=== PATIENT | female | born 1975 | race Caucasian/White ===

== ENCOUNTER 2023-03-02 12:59 | Inpatient (IN) | payer MEDICAID ==
[~2023-03-02] VITALS: Ht 154.9 cm; Wt 70.8 kg
[2023-03-02 13:25] VITALS: BP 102/66
--- NOTE | 2023-03-02 14:30 | NUR ---
PT. BED 1 VIA WC WITH AT BEDSIDE
--- NOTE | 2023-03-02 14:49 | NUR ---
Note regina in ED - 03/02/23 at 1450 by [email or web address] PT. NOT FOUND IN LOBBY. CALLED PT.S NAME OUTSIDE ER. CHECKED BATHROOMS. PT. NOT FOUND. PT. LEFT WITHOUT BEING SEEN. NOTIFIED.
[2023-03-02] MEDS ORDERED: NACL 0.9% 2,000 ML IV ONE (14:50)
[2023-03-02] MEDS ORDERED: MORPHINE SULFATE 4 MG/ML SYR IVP ONE (14:55)
[2023-03-02] MEDS ORDERED: cefTRIAXone 1,000 MG VIAL ONE (15:05)
[2023-03-02] MEDS ORDERED: DEXTROSE 50% 50 ML SYR IVP ONE ×5 (15:11→19:15)
[2023-03-02 15:18] LABS: BASOPHILS % (AUTO) 0.4 % (0.0-2.0); EOSINOPHILS % (AUTO) 0.3 % (0.0-4.0); HEMATOCRIT 29.8 % (36-48); HEMOGLOBIN 9.1 g/dL (12.0-16.0); LYMPHOCYTES # (AUTO) 0.2 K/uL (2.5-16.5); LYMPHOCYTES % (AUTO) 4.9 % (20.5-51.1); MEAN CORPUSCULAR HEMOGLOBIN 22 pg (27-31); MEAN CORPUSCULAR HGB CONC 31 g/dL (33-37); MEAN CORPUSCULAR VOLUME 72.7 fL (80-94); MONOCYTES # (AUTO) 0.3 K/uL (0.8-1.0); MONOCYTES % (AUTO) 6.8 % (1.7-9.3); NEUTROPHILS # (AUTO) 3.5 K/uL (1.8-7.7); NEUTROPHILS % (AUTO) 87.6 % (42.2-75.2); PLATELET COUNT (AUTO) 90 K/uL (140-450); RED CELL DISTRIBUTION WIDTH 22.2 % (11.6-13.7)
[2023-03-02 15:26] LABS: APPEARANCE,URINE CLEAR (CLEAR); BILIRUBIN,URINE 1+ (NEGATIVE); BLOOD, URINE NEGATIVE (NEGATIVE); COLOR,URINE YELLOW (YELLOW); LEUKOCYTE ESTERASE ,URINE NEGATIVE (NEGATIVE); NITRITE, URINE NEGATIVE (NEGATIVE); UGLUCOSE NEGATIVE (NEGATIVE)
[2023-03-02 15:36] LABS: ALBUMIN 2.7 g/dL (3.4-5.0); ANION GAP 37.1 (8-16); POTASSIUM 3.8 mmol/L (3.5-5.1); TOTAL BILIRUBIN 3.2 mg/dL (0.0-1.0)
[2023-03-02 15:40] LABS: CARBON DIOXIDE 5.7 mmol/L (21-32); CREATININE 4.8 mg/dL (0.6-1.3)
--- NOTE | 2023-03-02 15:40 | NUR ---
MD ULLOA NOTIFIED OF MULTIPLE CRITICAL LABS 1540 CO2 5.7 GLUCOSE 37 BUN 65 CREATININE 4.8 LACTIC ACID 5.1 1550 ACETAMINOPHEN 49.6
[2023-03-02 15:43] LABS: BARBITURATE, URINE NEGATIVE ng/ml (NEG <=200); BENZODIAZEPINE, URINE NEGATIVE ng/mL (NEG <=200); CANNABINOID, URINE NEGATIVE ng/mL (NEG <=50); COCAINE, URINE NEGATIVE ng/mL (NEG <=300); OPIATE, URINE POSITIVE ng/mL (NEG <=2000); PHENCYCLIDINE SCREEN,URINE NEGATIVE ng/mL (NEG <=25)
[2023-03-02 15:48] LABS: ACETAMINOPHEN 49.6 ug/ml (10-30); SALICYLATE < 2.8 mg/dL (2.8-20.0)
[2023-03-02] MEDS ORDERED: SODIUM BICARBONATE 8.4% 50 MEQ in DEXTROSE 5% 1,000 ML IV SCH (17:05)
[2023-03-02] MEDS ORDERED: SODIUM BICARBONATE 8.4% PFS 50 MEQ/50 ML SYR IVP ONE (18:05)
[2023-03-02] MEDS ORDERED: ONDANSETRON 4 MG/2 ML VIAL IVP PRN (18:50)
[2023-03-02] MEDS ORDERED: DOCUSATE SODIUM 100 MG GELCAP PO PRN (18:50)
[2023-03-02] MEDS ORDERED: MAG SULF 2000 MG/WATER PREMIX 50 ML IV PRN (18:50)
[2023-03-02] MEDS ORDERED: ZOLPIDEM 10 MG TAB PO PRN (18:50)
[2023-03-02] MEDS ORDERED: POTASSIUM CHLORIDE 10 MEQ TABER PO PRN (18:50)
--- NOTE | 2023-03-02 19:20 | NUR ---
Spoke with for update patient's status.
--- NOTE | 2023-03-02 19:35 | NUR ---
Spoke with patient's for patient 's history and her list of medications.
[2023-03-02] MEDS: SODIUM BICARBONATE 8.4% 150 MEQ in DEXTROSE 5% 1,000 ML IV SCH (19:50)
[2023-03-02] MEDS ORDERED: MELO-174 PO (19:55)
[2023-03-02] MEDS ORDERED: ACET-10509 PO (19:55)
[2023-03-02] MEDS ORDERED: HYDR-5080 PO (19:55)
[2023-03-02] MEDS ORDERED: GABA100C PO (19:55)
--- NOTE | 2023-03-02 20:10 | NUR ---
Patient will be admitted to care of . Admited to ICU. Will go to room ICU 1. Belongings list completed. Report to AZIZA Lomax.
[2023-03-02 20:11] LABS: ANION GAP 33.3 (8-16); POTASSIUM 3.5 mmol/L (3.5-5.1)
[2023-03-02 20:14] LABS: CARBON DIOXIDE 6.2 mmol/L (21-32); CREATININE 4.4 mg/dL (0.6-1.3)
[2023-03-02 20:30] VITALS: BP 113/61
[2023-03-02] MEDS: MORPHINE SULFATE 2 MG/ML SYR IVP PRN (21:30)
[2023-03-02] MEDS: LORazepam 2 MG/ML VIAL IVP PRN (21:30)
[2023-03-02 22:30] VITALS: BP 112/59
[2023-03-02 23:30] VITALS: BP 112/56
[2023-03-03] VITALS (36 sets, daily range): BP systolic 54–118; BP diastolic 27–75
[2023-03-03] MEDS: NACL 0.9% 500 ML IV SCH ×3 (04:30→13:35)
[2023-03-03] MEDS: SODIUM BICARBONATE 8.4% 150 MEQ in DEXTROSE 5% 1,000 ML IV SCH ×2 (05:02→14:46)
[2023-03-03 05:53] LABS: PLATELET COUNT (AUTO) 47 K/uL (140-450); RED CELL DISTRIBUTION WIDTH 22.1 % (11.6-13.7)
[2023-03-03 05:55] LABS: HEMOGLOBIN 7.6 g/dL (12.0-16.0); MEAN CORPUSCULAR HEMOGLOBIN 22 pg (27-31); MEAN CORPUSCULAR HGB CONC 30 g/dL (33-37); MEAN CORPUSCULAR VOLUME 73.3 fL (80-94); WHITE BLOOD COUNT (AUTO) 2.1 K/uL (4.8-10.8)
[2023-03-03 06:16] LABS: ANION GAP 31.6 (8-16); CARBON DIOXIDE 9.3 mmol/L (21-32); POTASSIUM 3.9 mmol/L (3.5-5.1)
[2023-03-03 06:41] LABS: CREATININE 5.1 mg/dL (0.6-1.3)
[2023-03-03 06:49] LABS: BASOPHILS % (MANUAL) 2 % (0-2); EOSINOPHILS % (MANUAL) 5 % (0-4); LYMPHOCYTES % (MANUAL) 12 % (20-46); MONOCYTES % (MANUAL) 7 % (5-12)
[2023-03-03] MEDS ORDERED: DEXTROSE 50% 50 ML SYR IVP ONE (06:50)
--- NOTE | 2023-03-03 07:13 | NUR ---
RECEIVED REPORT FROM LUIS (RN) PT O2 SAT 88, INFORMED HER TO CALL RT, B/P 119/73, HR 118, RR 40, TEMP 97.5
--- NOTE | 2023-03-03 07:34 | NUR ---
RECEIVED REPORT FROM EUGENE(RN) PT LETHARGIC WITH RAPID RESPIRATIONS @38, B/P91/52, HR 115, O2 NACL @93%
--- NOTE | 2023-03-03 07:43 | NUR ---
FAMILY AT BEDSIDE AT THIS TIME
--- NOTE | 2023-03-03 07:47 | NUR ---
NIGHT NURSE STATED PT COMPLETED BICARB BRIP THIS AM AROUND 5 AM FROM THE ER
--- NOTE | 2023-03-03 08:01 | NUR ---
DR LOPEZ AT BEDSIDE STATED WILL SIGN CONSENT FOR QUEENIE, STATED HE WILL CONSULT DR Antonio REGARDING QUEENIE
--- NOTE | 2023-03-03 08:20 | NUR ---
[facility] AWARE( LEFT MESSAGE) OF HD TODAY PER DR GALLO
[2023-03-03] MEDS ORDERED: NOREPINEPHRINE 4 MG in DEXTROSE 5% 250 ML IV PRN (08:40)
--- NOTE | 2023-03-03 08:42 | NUR ---
BLOODGLUCOSE 21, D50 GIVEN, DR LOPEZ NOTIFIED REGARDING LOW B/P
--- NOTE | 2023-03-03 08:50 | NUR ---
AT BEDSIDE AT THIS TIME
--- NOTE | 2023-03-03 08:53 | NUR ---
PT. WITH LOW DIANA SCALE AT HIGH RISK, CONTINUE TO FOLLOW PRESSURE INJURY PREVENTION INTERVENTIONS. PT WITH CRITICAL LAB RESULTS. AT BED SIDE. -POSITIONING: TURN AND REPOSITION PATIENT Q 2H OR SOONER USE PILLOWS TO KEEP BONY PROMINENCES FROM DIRECT CONTACT WITH SURFACES USE REPOSITIONING WEDGES TO PROVIDE 30-DEGREE ANGLE FOR SIDE LYING POSITIONS OFFLOADING OR FOAM DRESSING TO ALL TUBING TO PREVENT MEDICAL DEVICES RELATED PRESSURE INJURY -RE-EVALUATING AND MANAGING INCONTINENCE MONITOR SKIN CONDITION DURING POSITION CHANGE DO NOT MASSAGE REDNESS, BONY PROMINENCES FREQUENT SANTO-CARE AND PROVIDE BARRIER CREAMS PRN IF SOILING MOISTURE CONTROL BY OFFER BED LECHUGA/URINAL /ABSORBENT PAD TO WICK AND HOLD MOISTURE KEEP SKIN DRY AND PROTECT FROM FRICTION -MANAGE FRICTION/SHEAR/MOBILITY KEEP HOB AT THE LOWEST LEVEL OF ELEVATION NO MORE THAN 30 DEGREE UNLESS OTHERWISE CONTRAINDICATED USE LIFT SHEET OR TRANSFER DEVICE TO MOVE PATIENT AND PREVENT LATERAL SHEER. PROTECT HEELS, ELBOWS BONY PROMINENCES WITH SKIN BERRIES OR FOAM DRESSING IF EXPOSED TO FRICTION OFFLOAD BILATERAL HEELS BY PLACING PILLOWS UNDER CALVES AT ALL TIMES, UNLESS OTHERWISE CONTRAINDICATED -PRESSURE REDISTRIBUTION SURFACE THERAPY DEAN ISOFLEX MATTRESS -NUTRITION: PLEASE FOLLOW RD RECOMMENDATIONS AND OFFER NUTRITION SUPPLEMENTS IF ORDERED. PLEASE CONTACT WOUND CARE NURSE FOR ANY QUESTION AND CHANGE OF WOUND CONDITION.
[2023-03-03] MEDS: DEXTROSE 50% 50 ML SYR IVP PRN (08:55)
--- NOTE | 2023-03-03 09:13 | NUR ---
PATIENT HAS BEEN SCREENED AND CATEGORIZED MODERATE NUTRITION RISK. PATIENT WILL BE SEEN WITHIN 3-5 DAYS OF ADMISSION. REVIEWED BY MYLA PACHECO RD
--- NOTE | 2023-03-03 09:22 | NUR ---
REPEAT GLUCOSE 99
--- NOTE | 2023-03-03 09:46 | NUR ---
DR CHOWDHURY AWARE OF PT STATUS, STATED TO INTUBATE, PLACE ON NON REBREATHER
[2023-03-03] MEDS ORDERED: MIDAZOLAM 2 MG/2 ML VIAL IV SCH (11:05)
[2023-03-03] MEDS ORDERED: PHENYLEPHRINE 10 MG in NACL 0.9% 250 ML IV PRN (11:10)
--- NOTE | 2023-03-03 11:30 | NUR ---
1130 VERSED 1 MG IV GIVEN AND VALENTÍN 50MG IV 1131 DR CHOWDHURY INTUBATED SUCESSFUL 1132 COLOR CHANGE, 7.5 CM @ 21 TEETH
[2023-03-03] MEDS ORDERED: fentaNYL citrate 1 MG in NACL 0.9% 80 ML IV PRN (11:35)
--- NOTE | 2023-03-03 11:35 | NUR ---
PATIENT WAS INTUBATED AT 1135. PATIENT WAS FOUND NON RESPONSIVE AND RT CALLED TO BEDSIDE. DECISION MADE TO INTUBATE. PATIENT WAS INTUBATED WITH 7.5 AT 21CM TO THE TEETH. VENTILATOR PLUGGED INTO RED OUTLET, AMBU BAG AT BEDSIDE WITH EXTRA FLOWMETER AND SUCTION SET UP. WILL CONTINUE TO MONITOR PATIENT.
[2023-03-03] MEDS ORDERED: MIDAZOLAM MDV 100 MG in NACL 0.9% 80 ML IV PRN (11:45)
[2023-03-03] MEDS: BLOOD GLUCOSE MONITORING 1 DEV DEV FS SCH ×11 (11:50→23:09)
[2023-03-03] MEDS ORDERED: VANCOMYCIN PER PHARMACY MC PRN (13:05)
[2023-03-03] MEDS ORDERED: VANCOMYCIN 750 MG in DEXTROSE 5% 250 ML IV SCH (14:00)
--- NOTE | 2023-03-03 14:08 | NUR ---
DC PLANNING SW AND CM MET WITH PTS JAYMIE. ACTIVELY LISTENED TO PTS HE EXPRESSED HIS DISSATISFACTION WITH INTERACTION WITH ED STAFF. JAYMIE REQUESTED PT BE TRANSFERRED TO A DIFFERENT HOSPITAL, EXPLAINED TO PT THAT PT CURRENTLY IS NOT STABLE FOR TRANSFER AND FURTHER EXPLAINED TRANSFER PROCEDURE, PTS VERBALIZED UNDERSTANDING. JAYMIE STRUGGLED TO COMPLETE ASSESSMENT HE CONTINUED TO DISCUSS DISSATISFACTION. CM OUTREACHED TO ATTENDING AND NOTIFIED HIM PTS REQUESTING POC UPDATE.
[2023-03-03] MEDS: NACL 0.9% 1,000 ML IV SCH (14:15)
[2023-03-03] MEDS: NOREPINEPHRINE 16 MG in DEXTROSE 5% 250 ML IV PRN (16:19)
[2023-03-03] MEDS ORDERED: DEXTROSE 10% IV SCH (17:05)
[2023-03-03] MEDS ORDERED: SODIUM BICARBONATE IV SCH (17:05)
--- NOTE | 2023-03-03 17:40 | NUR ---
FAMILY AT BEDSIDE RUBBING FEET , PULLING COVERS BACK LOOKING AT HER FEET
--- NOTE | 2023-03-03 18:46 | NUR ---
DR Antonio AT BEDSIDE FOR QUEENIE CATH PLACEMENT
--- NOTE | 2023-03-03 18:58 | NUR ---
NOT GIVEN PT. HAD BLEEDING
--- NOTE | 2023-03-03 19:00 | NUR ---
NON RESPONSIVE VENTED WITH ORAL ETT TV-450, FIO2-100%, AC-28 PEEP10. WITH LEVOPHED DRIP 16MG/250 D5W 16 MCG/MIN, VASOPRESSIN 0.04 MCG/MIN. NEOSYNEPRINE DRIP-OFF. D5W 1 LITER WITH 150 MEQ SODIUM BICARB 125 ML/HR. TO RT UPPER ARM PICCLINE QUEENIE TO RT IJ DRESSING DONE. FAMILY HERE VISITING
--- NOTE | 2023-03-03 19:24 | NUR ---
INGRIS CALLAHAN(AZIZA)
--- NOTE | 2023-03-03 19:59 | NUR ---
1944 SXNED BRIGHT RED BLOOD FROM PATIENTS MOUTH. SXNED ETUBE NO SECRETIONS
--- NOTE | 2023-03-03 21:12 | NUR ---
CALLED DR MURCIA TO GET ORDER TO CHANGE VENT MODE TO PRVC AND INLINE HHN TXS
[2023-03-03] MEDS: PIPERACILLIN/TAZOBACTAM 3.375 GM in DEXTROSE 5% 100 ML IV SCH (21:39)
[2023-03-03] MEDS ORDERED: ALBUTEROL SULFATE/IPRATROPIU 3 ML SOL IH ONE (22:54)
[2023-03-03] MEDS ORDERED: DEXMEDETOMIDINE HCL 100 MCG/ML 2 ML VIAL IV ONE (23:10)
[2023-03-03] MEDS: LORazepam 2 MG/ML VIAL IVP PRN (23:12)
[2023-03-03] MEDS: MORPHINE SULFATE 2 MG/ML SYR IVP PRN (23:15)
[2023-03-03] MEDS: DEXMEDETOMIDINE HCL 400 MCG in NACL 0.9% 96 ML IV PRN (23:41)
[2023-03-04] VITALS (35 sets, daily range): BP systolic 87–129; BP diastolic 43–69
--- NOTE | 2023-03-04 | NUR ---
RESP . WITH LABORED BREATHING. MORPHINE GIVEN 2MG IV PUSH ,ATIVAN 2 MG IV GIVEN NOT EFFECTIVE. PRECEDEX STARTED 0.04 MCG/KG/MIN AND ITS EFFECTIVE. DIALYSIS DONE JUST CLEAN THE BLOOD CONT WITH ALL SAME MEDS DRIP.
[2023-03-04] MEDS: BLOOD GLUCOSE MONITORING 1 DEV DEV FS SCH ×15 (00:26→20:20)
[2023-03-04] MEDS: DEXTROSE 50% 50 ML SYR IVP PRN ×2 (00:28→16:19)
[2023-03-04] MEDS: ALBUTEROL SULFATE/IPRATROPIU 3 ML SOL IH SCH ×4 (01:28→19:32)
--- NOTE | 2023-03-04 01:30 | NUR ---
MORTUARY HERE BODY TAKEN BY [facility]. PT. HAS NO BELONGIGS Addendum: 03/04/23 at 0219 by AZIZA ERVIN CORRECTION NOT TO THIS PATIENT
[2023-03-04] MEDS: NACL 0.9% 1,000 ML IV SCH ×2 (02:45→09:45)
[2023-03-04] MEDS ORDERED: NOREPINEPHRINE 4 MG/4 ML VIAL IV ONE ×2 (04:03)
[2023-03-04] MEDS ORDERED: VASOPRESSIN 20 UNITS/ML VIAL ONE ×2 (04:05→22:50)
--- NOTE | 2023-03-04 04:34 | NUR ---
0430 LOWERED FIO2 TO60%
--- NOTE | 2023-03-04 05:00 | NUR ---
CONT. WITH HOURLY BLOOD SUGAR 2340-TIME BLOOD SUGAR-65 .D50% IV GIVEN BLOOD SUGAR RECHECKED -115 CONT WITH THE SAME PRESSOR AND IV. AM CARE DONE. VENTED SAME SETTING EXCEPT FIO2 DECREASED TO 65% 02 SAT99% CLOSE MONITORING
[2023-03-04] MEDS: SODIUM BICARBONATE 8.4% 150 MEQ in DEXTROSE 5% 1,000 ML IV SCH ×2 (05:30→08:37)
[2023-03-04 05:46] LABS: BASOPHILS % (AUTO) 0.1 % (0.0-2.0); EOSINOPHILS # (AUTO) 0.1 K/uL (0-0.4); EOSINOPHILS % (AUTO) 1.4 % (0.0-4.0); HEMATOCRIT 20.7 % (36-48); LYMPHOCYTES # (AUTO) 0.3 K/uL (2.5-16.5); MEAN CORPUSCULAR HEMOGLOBIN 22 pg (27-31); MEAN CORPUSCULAR HGB CONC 32 g/dL (33-37); MEAN CORPUSCULAR VOLUME 70.3 fL (80-94); MONOCYTES # (AUTO) 0.2 K/uL (0.8-1.0); MONOCYTES % (AUTO) 1.7 % (1.7-9.3); NEUTROPHILS # (AUTO) 9.9 K/uL (1.8-7.7); NEUTROPHILS % (AUTO) 93.8 % (42.2-75.2); RED BLOOD CELL COUNT(AUTO) 2.95 MIL/uL (4.20-5.40); RED CELL DISTRIBUTION WIDTH 21.4 % (11.6-13.7); WHITE BLOOD COUNT (AUTO) 10.5 K/uL (4.8-10.8)
[2023-03-04 06:05] LABS: CREATININE 3.6 mg/dL (0.6-1.3); POTASSIUM 3.4 mmol/L (3.5-5.1)
[2023-03-04] MEDS: NOREPINEPHRINE 16 MG in DEXTROSE 5% 250 ML IV PRN ×2 (06:05→21:29)
[2023-03-04 06:21] LABS: CARBON DIOXIDE 22.4 mmol/L (21-32)
[2023-03-04 07:13] LABS: HEMOGLOBIN 6.6 g/dL (12.0-16.0); PLATELET COUNT (AUTO) 19 K/uL (140-450)
--- NOTE | 2023-03-04 07:30 | NUR ---
Received report on pt. Pt intubated and in no signs of pain or distress, sedated with precedex drip. Pt also with levophed, vasopressin, and sodium bicarb drips. Pt noted with blood coming from nasal and oral mucosa, dried. Caban with urine draining to gravity. NGT in place and clamped.
--- NOTE | 2023-03-04 08:04 | NUR ---
Pt's at bedside, updated regarding plan of care, signed consent for blood transfusion.
[2023-03-04] MEDS ORDERED: LORATADINE 10 MG TAB PO PRN (08:25)
[2023-03-04] MEDS ORDERED: CALCIUM GLUC 1 GM/50 mL NS BAG 50 ML IV SCH (09:00)
[2023-03-04 09:35] LABS: PROTHROMBIN TIME 18.8 secs (10.8-13.4)
[2023-03-04 09:45] LABS: D-DIMER > 5000 ng/ml (0-400)
[2023-03-04] MEDS: PIPERACILLIN/TAZOBACTAM 3.375 GM in DEXTROSE 5% 100 ML IV SCH ×2 (09:48→21:23)
[2023-03-04] MEDS ORDERED: KCL 20 MEQ IN 100 mL PREMIX 100 ML IV SCH (10:00)
[2023-03-04 10:34] LABS: FIBRINOGEN 478 mg/dL (200-400)
[2023-03-04] MEDS ORDERED: ALBUMIN HUMAN 25% 100 ML IV SCH (14:00)
[2023-03-04] MEDS: VASOPRESSIN 20 UNITS in NACL 0.9% 250 ML IV SCH ×2 (15:00→23:50)
[2023-03-04] MEDS ORDERED: VANCOMYCIN PER PHARMACY MC PRN (16:20)
[2023-03-04 17:07] LABS: EOSINOPHILS % (AUTO) 0.1 % (0.0-4.0); HEMATOCRIT 20.8 % (36-48); LYMPHOCYTES # (AUTO) 0.4 K/uL (2.5-16.5); LYMPHOCYTES % (AUTO) 3.2 % (20.5-51.1); MEAN CORPUSCULAR HEMOGLOBIN 23 pg (27-31); MEAN CORPUSCULAR HGB CONC 33 g/dL (33-37); MEAN CORPUSCULAR VOLUME 70.3 fL (80-94); MONOCYTES # (AUTO) 0.2 K/uL (0.8-1.0); MONOCYTES % (AUTO) 1.8 % (1.7-9.3); NEUTROPHILS # (AUTO) 12.5 K/uL (1.8-7.7); NEUTROPHILS % (AUTO) 94.9 % (42.2-75.2); PLATELET COUNT (AUTO) 22 K/uL (140-450); RED BLOOD CELL COUNT(AUTO) 2.96 MIL/uL (4.20-5.40); RED CELL DISTRIBUTION WIDTH 22.2 % (11.6-13.7); WHITE BLOOD COUNT (AUTO) 13.2 K/uL (4.8-10.8)
[2023-03-04 17:10] LABS: HEMOGLOBIN 6.9 g/dL (12.0-16.0)
[2023-03-04] MEDS: ACETAMINOPHEN 325 MG TAB PO PRN (18:28)
--- NOTE | 2023-03-04 19:10 | NUR ---
RECEIVED REPORT FROM DAY SHIFT NURSE, AZIZA MIRELES. ALL CARES ASSUMED. RECEIVED PT ON SEMI-RUIZ'S POSITION WITH SIDE RAILS RAISED UP. PT IS SEDATED WITHOUT SPONTANEOUS EYE OPENING. WITH NGT- INTACT. WITH ETT TO VENT AT AC/PRVC SETTINGS- SPO2 99%, NOT IN DISTRESS. WITH EQUAL CHEST RISE OBSERVED. DIALYSIS ACCESS OVER RIGHT IJ. WITH PICC LINE OVER RIGHT UPPER ARM WITH - VASOPRESSIN AT 0.04 IU/MIN; NS 80 ML/HR; LEVOPHED AT 17 ML/HR; PRECEDEX 0.2 MCG/KG/HR - FLOWING WELL. HERNANDEZ CATHETER DRAINING TO URINE BY GRAVITY. WITH SACRAL WOUND NOTED AND SCATTERED SCABS TO BOTH LOWER EXTREMETIES.
--- NOTE | 2023-03-04 19:20 | NUR ---
Closing Pt remains intubated and sedated, on vasopressors. Pt with cooling measures and PRN tylenol given. Caban draining urine to gravity. Pt received dialysis today and will receive dialysis again tomorrow. MD aware of pt's CBC, more orders made for blood transfusions. Endorsed plan of care to RN.
--- NOTE | 2023-03-04 21:00 | NUR ---
SPOUSE AT BEDSIDE; WILL PROVIDE LIST OF NAMES THAT ARE NOT ALLOWED TO SEE PATIENT
--- NOTE | 2023-03-04 21:40 | NUR ---
SON (HIEN), AT BEDSIDE
--- NOTE | 2023-03-04 21:50 | NUR ---
SON'S (JAYMIE AND FLAVIO) AT BEDSIDE FLAVIO PROVIDED ADDITIONAL NAMES TO ADD TO LIST; NAMES WERE PROVIDED TO FLAVIO BY PATIENT'S SPOUSE
[2023-03-04] MEDS: DEXMEDETOMIDINE HCL 400 MCG in NACL 0.9% 96 ML IV PRN (22:11)
--- NOTE | 2023-03-04 22:20 | NUR ---
TRANSFUSION COMPLETE; PATIENT STABLE
--- NOTE | 2023-03-04 22:25 | NUR ---
2219 CHANGED PATIENTS ANCHOR FAST DUE TO BLOOD ON IT AND CLEANED PATIENTS FACE AND NECK. TUBE IS STILL AT LIP LINE 21CM
[2023-03-05] VITALS (32 sets, daily range): BP systolic 104–162; BP diastolic 57–98
[2023-03-05] MEDS: BLOOD GLUCOSE MONITORING 1 DEV DEV FS SCH ×6 (00:04→20:49)
--- NOTE | 2023-03-05 00:40 | NUR ---
PLATELET TRANSFUSION STARTED
[2023-03-05] MEDS: ALBUTEROL SULFATE/IPRATROPIU 3 ML SOL IH SCH ×4 (01:02→19:00)
--- NOTE | 2023-03-05 01:40 | NUR ---
PLATELET TRANSFUSION COMPLETE, PATIENT STABLE.
--- NOTE | 2023-03-05 01:55 | NUR ---
0106 LOWERED FIO2 TO 30%. PT SATS 99%
--- NOTE | 2023-03-05 02:05 | NUR ---
BLOOD TRANSFUSION STARTED
--- NOTE | 2023-03-05 04:30 | NUR ---
TRANSFUSION COMPLETE, PATIENT STABLE
[2023-03-05] MEDS: NACL 0.9% 1,000 ML IV SCH (04:52)
--- NOTE | 2023-03-05 06:45 | NUR ---
FRESH FROZEN PLASMA TRANSFUSION (FFP) STARTED
--- NOTE | 2023-03-05 07:00 | NUR ---
RECEIVED PHONE CALL FROM PATIENT'S SPOUSE (JAYMIE); PROVIDED UPDATE ON CURRENT STATUS
--- NOTE | 2023-03-05 07:15 | NUR ---
TRANSFER OF CARE TO DAY SHIFT; CARE OF PATIENT ENDORSED TO AZIZA GARCIA
--- NOTE | 2023-03-05 07:15 | NUR ---
RECEIVED BEDSIDE REPORT FROM SHAPER OPERATOR MARIA ANTONIA ERVIN. ETT TO VENT, AC PRVC FIO2 30%, VT 450, RATE 28, PEEP 10. ST ON BEDSIDE MONITOR. PICC LINE TO YEHUDA, INFUSING LEVOPHED @ 18 MCG/MIN, VASOPRESSIN @ 0.04 UNITS/MIN, NS @ 80ML/H, PRECEDEX @ 0.2MCG/KG/H, LT AC 18 G, INFUSING FFP @ 220ML/H. NPO. HERNANDEZ IN PLACE TO GRAVITY, NO URINE OUTPUT OVER THE NIGHT. SAFETY PRECAUTION IN PLACE, WILL CONTINUE TO MONITOR.
[2023-03-05 08:13] LABS: BASOPHILS % (AUTO) 0.1 % (0.0-2.0); EOSINOPHILS # (AUTO) 0.4 K/uL (0-0.4); EOSINOPHILS % (AUTO) 2.8 % (0.0-4.0); HEMATOCRIT 25.9 % (36-48); HEMOGLOBIN 8.5 g/dL (12.0-16.0); LYMPHOCYTES # (AUTO) 0.7 K/uL (2.5-16.5); MEAN CORPUSCULAR HEMOGLOBIN 25 pg (27-31); MEAN CORPUSCULAR HGB CONC 33 g/dL (33-37); MEAN CORPUSCULAR VOLUME 74.5 fL (80-94); MONOCYTES # (AUTO) 0.2 K/uL (0.8-1.0); NEUTROPHILS # (AUTO) 14.4 K/uL (1.8-7.7); RED BLOOD CELL COUNT(AUTO) 3.48 MIL/uL (4.20-5.40); RED CELL DISTRIBUTION WIDTH 22.3 % (11.6-13.7); WHITE BLOOD COUNT (AUTO) 15.8 K/uL (4.8-10.8)
[2023-03-05 08:20] LABS: PLATELET COUNT (AUTO) 17 K/uL (140-450)
[2023-03-05 08:26] LABS: CARBON DIOXIDE 23.7 mmol/L (21-32); CREATININE 3.5 mg/dL (0.6-1.3); POTASSIUM 3.7 mmol/L (3.5-5.1)
[2023-03-05] MEDS: MUPIROCIN CA NASAL 2% 1GM TUBE NS SCH (08:29)
[2023-03-05] MEDS: PIPERACILLIN/TAZOBACTAM 3.375 GM in DEXTROSE 5% 100 ML IV SCH ×2 (08:29→21:03)
--- NOTE | 2023-03-05 08:29 | NUR ---
DR. LENNON AT BEDSIDE: SHARAD TO OBTAIN SPUTUM CULTURE
--- NOTE | 2023-03-05 08:30 | NUR ---
RECEIVED ON A [employer] R860 VENTILATOR PLUGGED INTO RED OUTLET TOLERATING WELL WITHOUT ADVERSE REACTIONS NOTED TO AN ENDOTRACHEAL TUBE #7.5 SECURED AT 21cm TEETH/GUM LINE WITH AN ANCHOR FAST CUFF PRESSURE CHECKED NOTED AMBU BAG AT BEDSIDE; DECREASED Vt TO 425ml TO PREVENT ALI; DECREASED PEEP TO 5cmH2O SATURATION 97% ON FIO2 OF 30% PEEP 68flE6Y REVIEWED BLOOD PRESSURE(S); RESTING COMFORTABLY GOOD CHEST RISE ENDOTRACHEAL TUBE SUCTION FOR MODERATE THIN YELLOW WITH BLOOD TINGE SECRETIONS; SPUTUM CULTURE SPECIMEN OBTAINED FORWARDED TO LAB
[2023-03-05] MEDS: CHLORHEXADINE GLUC 2% CLOTH TP SCH (08:31)
--- NOTE | 2023-03-05 08:33 | NUR ---
DR LENNON ROUNDING AT BESIDE. UPDATED PT INFORMATION.
[2023-03-05] MEDS: VASOPRESSIN 20 UNITS in NACL 0.9% 250 ML IV SCH (09:00)
[2023-03-05 09:13] LABS: LYMPHOCYTES % (AUTO) 4.5 % (20.5-51.1); MONOCYTES % (AUTO) 1.2 % (1.7-9.3); NEUTROPHILS % (AUTO) 91.4 % (42.2-75.2)
[2023-03-05] MEDS ORDERED: VANCOMYCIN 1.25GM PREMIX 250 ML IV SCH (10:00)
[2023-03-05 10:04] LABS: BASOPHILS % (AUTO) 0.1 % (0.0-2.0); EOSINOPHILS # (AUTO) 0.2 K/uL (0-0.4); EOSINOPHILS % (AUTO) 1.4 % (0.0-4.0); HEMATOCRIT 24.7 % (36-48); HEMOGLOBIN 8.2 g/dL (12.0-16.0); LYMPHOCYTES # (AUTO) 0.9 K/uL (2.5-16.5); LYMPHOCYTES % (AUTO) 5.7 % (20.5-51.1); MEAN CORPUSCULAR HEMOGLOBIN 25 pg (27-31); MEAN CORPUSCULAR HGB CONC 33 g/dL (33-37); MEAN CORPUSCULAR VOLUME 73.9 fL (80-94); MONOCYTES # (AUTO) 0.2 K/uL (0.8-1.0); MONOCYTES % (AUTO) 1.3 % (1.7-9.3); NEUTROPHILS # (AUTO) 15.1 K/uL (1.8-7.7); NEUTROPHILS % (AUTO) 91.5 % (42.2-75.2); RED BLOOD CELL COUNT(AUTO) 3.34 MIL/uL (4.20-5.40); RED CELL DISTRIBUTION WIDTH 22.8 % (11.6-13.7); WHITE BLOOD COUNT (AUTO) 16.5 K/uL (4.8-10.8)
[2023-03-05 10:08] LABS: PLATELET COUNT (AUTO) 17 K/uL (140-450)
--- NOTE | 2023-03-05 10:50 | NUR ---
STABLE GOOD CHEST RISE NO SUCTIONING REQUIRED AT THIS TIME LURER TO MONITOR FAMILY AT BEDSIDE
--- NOTE | 2023-03-05 11:20 | NUR ---
DR OTERO ROUNDARMANDO AT BEDSIDE. UPDATED PT INFORMATION.
--- NOTE | 2023-03-05 11:35 | NUR ---
DR GALLO ROUNDING AT BEDSIDE. UPDATED PT INFORMATION.
--- NOTE | 2023-03-05 11:41 | NUR ---
DR GABBY TAYLOR AT BEDSIDE. UPDATED PT INFORMATION
[2023-03-05] MEDS: DEXT 5% / NACL 0.9% 500 ML IV SCH ×2 (12:31→23:25)
--- NOTE | 2023-03-05 13:50 | NUR ---
ROUTINE ABG COMPLETED; NO ADVERSE REACTIONS NOTED
[2023-03-05] MEDS: NOREPINEPHRINE 16 MG in DEXTROSE 5% 250 ML IV PRN (13:53)
--- NOTE | 2023-03-05 13:58 | NUR ---
REVIEWED ABG RESULTS; DECREASED RATE TO 20 BPM; SEDATED STABLE GOOD CHEST RISE; ENDOTRACHEAL SUCTION FOR MODERATE THIN YELLOW WITH BLOOD TINGE SECRETIONS AIRWAY PATENT; YANLI/ASSEMBLER METAL BUILDING NOTIFIED VIA KAREN/ASSEMBLER METAL BUILDING OF RATE DECREASED
--- NOTE | 2023-03-05 14:06 | NUR ---
ROUTINE ABG RESULTS TEXTED ICU CELL TO DR. KARI PIERRE Addendum: 03/05/23 at 1414 by David Martin RT DECREASED RATE TO 20 BPM
[2023-03-05] MEDS: ACETAMINOPHEN 325 MG TAB PO PRN (14:51)
--- NOTE | 2023-03-05 15:52 | NUR ---
SEDATED STABLE GOOD CHEST RISE ENDOTRACHEAL SUCTION FOR COPIOUS HAZY WITH BLOOD TINGE SECRETIONS AIRWAY PATENT HEMODIALYSIS IN PROGRESS
[2023-03-05] MEDS ORDERED: ALBUMIN HUMAN 25% 100 ML IV SCH (16:00)
--- NOTE | 2023-03-05 17:26 | NUR ---
CALLED AND NOTIFIED DR PIERRE REGARDING 1 UNIT PLATELETS PHERESIS TRANSFUSION ORDER. PLATELET PHERESIS IS READY TO SCRAP MATERIALS BUYER. LAB CAN'T ISSUE THE 1 UNIT PLATELETS PHERESIS BECAUSE COMPUTER SYSTEM PROBLEM, WHICH SHOWS THE ORDER IS WRONG. HOUSE SUPER NOTIFIED AND WILL CONTACT IT. ALSO, DR OTERO WILL COME TO HOSPITAL AND TRY TO ENTER ORDER.
[2023-03-05] MEDS ORDERED: AMIODARONE 450 MG in DEXTROSE 5% 250 ML IV SCH (19:10)
--- NOTE | 2023-03-05 19:15 | NUR ---
ENDORSED TO SKILLS INSTRUCTOR [place] RN FOR CONTINUITY OF CARE. ALL QUESTION ANSWERED.
[2023-03-05] MEDS ORDERED: AMIODARONE 150 MG in DEXTROSE 5% 100 ML IV SCH (19:40)
[2023-03-05] MEDS ORDERED: AMIODARONE 150 MG/3 ML VIAL IV ONE (19:46)
[2023-03-05] MEDS ORDERED: AMIODARONE 450 MG/9 ML VIAL IV ONE (19:46)
[2023-03-05] MEDS ORDERED: VASOPRESSIN 20 UNITS/ML VIAL ONE (20:36)
[2023-03-05 20:54] LABS: BASOPHILS % (AUTO) 0.2 % (0.0-2.0); EOSINOPHILS # (AUTO) 0.1 K/uL (0-0.4); EOSINOPHILS % (AUTO) 0.6 % (0.0-4.0); HEMATOCRIT 23.2 % (36-48); HEMOGLOBIN 7.8 g/dL (12.0-16.0); LYMPHOCYTES # (AUTO) 1.5 K/uL (2.5-16.5); LYMPHOCYTES % (AUTO) 12.1 % (20.5-51.1); MEAN CORPUSCULAR HEMOGLOBIN 25 pg (27-31); MEAN CORPUSCULAR HGB CONC 34 g/dL (33-37); MEAN CORPUSCULAR VOLUME 74.3 fL (80-94); MONOCYTES # (AUTO) 0.2 K/uL (0.8-1.0); MONOCYTES % (AUTO) 1.8 % (1.7-9.3); NEUTROPHILS # (AUTO) 10.9 K/uL (1.8-7.7); NEUTROPHILS % (AUTO) 85.3 % (42.2-75.2); PLATELET COUNT (AUTO) 35 K/uL (140-450); RED BLOOD CELL COUNT(AUTO) 3.13 MIL/uL (4.20-5.40); RED CELL DISTRIBUTION WIDTH 22.2 % (11.6-13.7); WHITE BLOOD COUNT (AUTO) 12.7 K/uL (4.8-10.8)
[2023-03-06] VITALS (30 sets, daily range): BP systolic 92–152; BP diastolic 54–80
[2023-03-06] MEDS: ACETAMINOPHEN 325 MG TAB PO PRN
[2023-03-06] MEDS: BLOOD GLUCOSE MONITORING 1 DEV DEV FS SCH ×6 (00:20→20:39)
[2023-03-06] MEDS: NOREPINEPHRINE 16 MG in DEXTROSE 5% 250 ML IV PRN ×2 (00:36→01:18)
[2023-03-06] MEDS: ALBUTEROL SULFATE/IPRATROPIU 3 ML SOL IH SCH ×4 (01:45→20:17)
[2023-03-06] MEDS: DEXMEDETOMIDINE HCL 400 MCG in NACL 0.9% 96 ML IV PRN (01:56)
[2023-03-06] MEDS ORDERED: AMIODARONE 150 MG/3 ML VIAL IV ONE ×2 (04:10→04:12)
[2023-03-06 04:33] LABS: HEMATOCRIT 23.1 % (36-48); HEMOGLOBIN 7.7 g/dL (12.0-16.0); MEAN CORPUSCULAR HEMOGLOBIN 25 pg (27-31); MEAN CORPUSCULAR HGB CONC 34 g/dL (33-37); MEAN CORPUSCULAR VOLUME 74.5 fL (80-94); PLATELET COUNT (AUTO) 20 K/uL (140-450); RED CELL DISTRIBUTION WIDTH 22.5 % (11.6-13.7)
[2023-03-06 04:53] LABS: ALBUMIN 1.8 g/dL (3.4-5.0); ANION GAP 16.7 (8-16); CARBON DIOXIDE 28.1 mmol/L (21-32); CREATININE 3.6 mg/dL (0.6-1.3); POTASSIUM 3.8 mmol/L (3.5-5.1); TOTAL BILIRUBIN 6.9 mg/dL (0.0-1.0)
[2023-03-06 05:07] LABS: BASOPHILS % (MANUAL) 0 % (0-2); EOSINOPHILS % (MANUAL) 0 % (0-4); LYMPHOCYTES % (MANUAL) 16 % (20-46); MONOCYTES % (MANUAL) 3 % (5-12); PLATELET COUNT,MANUAL 26 K/uL (150-450)
[2023-03-06 05:10] LABS: WHITE BLOOD COUNT (AUTO) 10.2 K/uL (4.8-10.8)
[2023-03-06 05:12] LABS: PROTHROMBIN TIME 16.6 secs (10.8-13.4)
--- NOTE | 2023-03-06 07:32 | NUR ---
RECEIVED ON A [employer] R860 VENTILATOR PLUGGED INTO RED OUTLET TOLERATING WELL WITHOUT COMPLICATIONS NOTED TO AN ENDOTRACHEAL TUBE #7.5 SECURED AT 21cm TEETH/GUM LINE WITH AN ANCHOR FAST CUFF PRESSURE CHECKED NOTED AMBU BAG AT BEDSIDE SEDATED RESTING COMFORTABLY GOOD CHEST RISE ENDOTRACHEAL SUCTION FOR LARGE YELLOW HAZY SECRETIONS IMPROVED PATENCY
--- NOTE | 2023-03-06 08:28 | NUR ---
ABG COMPLETED ; NO ADVERSE REACTIONS NOTED
--- NOTE | 2023-03-06 08:45 | NUR ---
ABG RESULTS TEXTED TO DR. KARI PIERRE VIA ICU CELL PHONE
--- NOTE | 2023-03-06 09:19 | NUR ---
DC PLANNING A 47Y.O. 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 WAS ADVISED TO CALL FOR UPDATE BUT COULD NOT REACH ALL DAY 03/03 MORNING.PATIENT IS TRACH TO VENT ON 30%FIO2.NEPHRO AND PULMO FOLLOWING.DC PLAN- DC HOME WHEN PATIENT RESPONDS TO TX.CM TO FOLLOW. Addendum: 03/06/23 at 1106 by CARLITA COLIN CM DC PLANNING -LATE ENTRY CORRECTION -PATIENT IS INTUBATED ON 30%FIO2 NOT TRACH TO VENT. CXR SHOWS WORSENING BILATERAL INFILTRATES/BILATERAL EDEMA .ON ZOSYN.PATIENT IS (+) FOR OPIATES ANS AMPHETAMINES.QUEENIE CATH INSERTED 03/03/23 AND WAS DIALYZED AFTER.CM TO FOLLOW. Addendum: 03/14/23 at 1536 by CARLITA COLIN CM DC PLANNING PATIENT IS STILL INTUBATED . WAS ON CPAP 03/13 FOR 3 HOURS ACCORDING TO ICU NURSE. OFF VASOPRESSIN AND LEVOPHED. BUT ON MINIMAL PRECEDEX.CREAT 5.0 AND FOR HD TODAY.NEPHRO ON BOARD.NOT MOVING LEFT SIDED EXTREMITY.CT SCAN HAS WHITE MATTER INFARCT.CARDIO, ID.NEPHRO ,PODIATRY AND SURGERY (INTERMITTENTLY) FOLLOWING.TALKED TO ,MELISSA COON AT LENGTH FOR MEDICAL INS. UPGRADE. REP'S NAME ,PALOMA RILEY AND PHONE NUMBER GIVEN TO .CM TO FOLLOW. Addendum: 03/17/23 at 1325 by CARLITA COLIN CM DC PLANNING PATIENT WAS SUCCESSFULLY EXTUBATED 03/15 AND ON ROOM AIR.NO DISTRESS SO FAR AND PATIENT IS RESPONSIVE TO VERBAL AND TACTILE STIMULI.CAROTID ARTERY US SHOWS NO STENOSIS .DOPPLER US NO SIGNIFICANT STENOSIS WELL.CT SCAN WITH WHITE MATTER INFARCT.OFF PRESSORS.MIGHT NEED VASCULAR WORKUP LATER .PODIATRY,ID,NEPHRO CARDIO, PULMO AND SURGERY ON BOARD.[facility] REJECTED PATIENT FOR HLOC DUE TO INSURANCE.[facility] HAS NO BED FOR NOW AND ACCEPTING ONLY HLOC TRANSFERS.DC PLAN- REHAB OR SNF PLACEMENT WHEN PATIENT IS READY FOR DISCHARGE.CM TO FOLLOW. Addendum: 03/17/23 at 1631 by CARLITA COLIN CM DC PLANNING TALKED TO AGAIN AND DISCHARGE PLAN DISCUSSED.HLOC NOT A POSSIBILITY THIS TIME.NO BED AT [facility] AND [facility] NOT ACCEPTING MEDICAL RESTRICTIVE.CM TO FOLLOW.
[2023-03-06] MEDS: PIPERACILLIN/TAZOBACTAM 3.375 GM in DEXTROSE 5% 100 ML IV SCH (09:38)
[2023-03-06] MEDS: MUPIROCIN CA NASAL 2% 1GM TUBE NS SCH (09:39)
[2023-03-06] MEDS: CHLORHEXADINE GLUC 2% CLOTH TP SCH (09:39)
--- NOTE | 2023-03-06 09:58 | NUR ---
SEDATED GOOD CHEST RISE GOOD AERATION THROUGHOUT BILATERAL LUNG FRASER IMPROVED AIRWAY PATENCY LEFT SIDE
--- NOTE | 2023-03-06 10:08 | NUR ---
AT BEDSIDE AT THIS TIME, VERY SPECIFIC WHO HE WANTS TO VISIT.
--- NOTE | 2023-03-06 11:12 | NUR ---
US AT BEDSIDE AT THIS TIME
[2023-03-06] MEDS: DEXT 5% / NACL 0.9% 500 ML IV SCH (11:40)
--- NOTE | 2023-03-06 12:04 | NUR ---
03/06/23 RD INITIAL ASSESSMENT COMPLETED PLEASE REFER TO NUTRITION ASSESSMENT UNDER CARE ACTIVITY FOR ESTIMATED NUTRITIONAL NEEDS. 1. MONITOR NPO STATUS 2. WHEN/IF MEDICALLY APPROPRIATE TO START TF, RECOMMEND NEPRO AT GOAL RATE 40 ML/HR, FWF 100 ML Q6H TOLERATED - PROVIDES 960 ML TOTAL VOLUME, 1728 KCAL, 77 GM PROTEIN AND 1097 ML FREE WATER DAILY MEETING 100% ESTIMATED KCAL AND PROTEIN NEEDS; ADEQUATE - START TF AT 1O ML/HR INCREASE BY 1O ML Q4H UNTIL GOAL IS REACHED TOLERATED 3. CONSULT RD PRN 4. RD TO FOLLOW-UP 2-3 DAYS, HIGH RISK REVIEWED BY MYLA PACHECO RD
--- NOTE | 2023-03-06 12:30 | NUR ---
DR CHENG AT BEDSIDE WITH
[2023-03-06] MEDS ORDERED: VANCOMYCIN 1,000 MG in DEXTROSE 5% 250 ML IV SCH ×2 (13:00→21:00)
--- NOTE | 2023-03-06 13:37 | NUR ---
DESTINY/CROWN ASSEMBLY MACHINE SET UP MECHANIC AT BEDSIDE FOR EVALUATION; RN REQUEST TRANSPORTATION DIRECTOR STANDBY Addendum: 03/06/23 at 1344 by David Martin RT EVALUATION AND TREATMENT; FIO2 AT 100% IMPLEMENTED DURING PROCEDURE
--- NOTE | 2023-03-06 14:00 | NUR ---
WOUND CARE NOTE: SKIN ASSESSMENT DONE WITH PRIMARY AZIZA BRAUN AND RT SOPHY. PT NO DISTRESS DURING ASSESSMENT. PT WITH SEVERE SEPSIS WITH LACTIC ACIDOSIS 2/2 GROUP A STREPTOCOCCUS BACTEREMIA. PATIENT REMAINS ON VENTILATOR. ON VASOPRESSIN AND PRECEDEX DRIP. NPO AT THIS TIME. HX OF LEFT NEPHRECTOMY, POLYSUBSTANCE ABUSE, POSITIVE DRUG SCREEN. BLE MULTIPLE DRY SCABS, BLE HYPERPIGMENTATION WITH HYPOXIA TISSUE ISCHEMIA X 10 TOES. RIGHT FOOT +2 EDEMA WITH MULTIPLE BULLOUS, WEEPING DENUDED SKIN. DORSAL FEET SKIN COLD TO TOUCH AND PURPLE IN COLOR POSSIBLE FROM VASOPRESSIN. PT. WITH LOW DIANA SCALE AT VERY HIGH RISK, CONTINUE TO FOLLOW PRESSURE INJURY PREVENTION INTERVENTIONS. POC DISCUSSED WITH PRIMARY RN APARNA. COMORBIDITIES RELATED TO DELAY WOUND HEALING, FURTHER SKIN BREAKS AND UN-AVOIDABLE PRESSURE INJURY: BOWEL AND URINARY INCONTINENCE, INFECTION, DM, KIDNEY FAILURE WITH HD, HYPOXEMIC DECREASE TISSUE PERFUSION, TISSUE ISCHEMIA, DECREASE MOBILITY AND FUNCTIONAL ABILITIES, AND HOB ELEVATED THE MAJORITY OF TIMES DUE TO MEDICAL REASONS. 4 WOUND PHOTOS OBTAINED, ABLE TO PRINT OUT 2, UNABLE TO CONTINUE TO PRINT DUE TO WIFI CONNECTION. PRINTER RESET AND PHOTOS RESENT, STILL UNABLE TO PRINT AT THIS SHIRLEY. ENDORSE TO APARNA TO CONTINUE TO FOLLOW. INTEGUMENTARY: -LIPS AND ORAL MUCOSA DRY. DRY BLOOD TO LIPS. -UPPER ARMS MULTIPLE ECCHYMOSIS/MULTIPLE PURPLE DISCOLORATION / ECCHYMOSIS -MOISTURE ASSOCIATED SKIN DAMAGE(MASD) TO: B/L GROINS, PERINEUM, SKIN RED, MOIST -SEVERE MASD TO RIGHT BUTTOCK PARTIAL THICKNESS SKIN LOSS 3X3X0.1CM, WOUND BED 100% PINK GRANULATING TISSUE, MOIST NO ODOR, SANTO WOUND PEELING SKIN. -RIGHT HIP CLEAR FLUIDS INTACT BLISTERING [id number] -LUMBAR AREA MULTIPLE DRY PEELING SCABS, UPPER LUMBER AREA SKIN TEAR 1X7X0.1CM. WOUND BED 100% RED GRANULATION TISSUE, MOIST, NO ODOR, WOUND EDGE FLAT, SANTO-WOUND SKIN DRY SCABBING SKIN -DTI COCCYX 5X1CM, 100% MAROON, SANTO-WOUND SKIN NON-BLANCHABLE REDNESS - DTI LEFT BUTTOCK, MULTIPLE DTI WITH LARGEST 1.5X2.5CM WOUND BED IS 100% MAROON, SANTO-WOUND SKIN NON-BLANCHABLE REDNESS -DTI RIGHT BUTTOCK X SHAPE 1X4CM -SEVERE MASD TO RIGHT BUTTOCK PARTIAL THICKNESS SKIN LOSS 3X3X0.1CM, WOUND BED 100% PINK GRANULATING TISSUE, MOIST NO ODOR, SANTO WOUND PEELING SKIN. -BLE MULTIPLE DRY SCABS, BLE HYPERPIGMENTATION WITH HYPOXIA ISCHEMIA X 10 TOES. -RIGHT FOOT +2 EDEMA WITH MULTIPLE BULLOUS, WEEPING DENUDED SKIN. DORSAL FEET SKIN COLD TO TOUCN AND PURPLE IN COLOR POSSIBLE FROM VASOPRESSIN. RECOMMENDATIONS: -APPLY NITROGLYCERIN CR. TO DORSAL FEET AND TOES DAILY -APPLY Z GUARD TO PERINEUM BID AND PRN IF SOILING -UPPER LUMBER SKIN TEAR, RIGHT BUTTOCK MASD AND RIGHT HIP BLISTERING SKIN CLEANSE WITH NS, PAT DRY, APPLY OIL EMULSION DRESSING, COVER WITH DRY DRESSING DAILY. -APPLY SACRALCOCCYX LEFT AND RIGHT BUTTOCK DTI WITH FOAM DRESSING WITH OFFLOADING - RIGHT FOOT MULTIPLE BULLOUS APPLY VERSATEL DRESSING CHANGE Q5 DAYS AND PRN IF SOILING -APPLY HEEL PROTECTORS AND ELEVATED BILATERAL FOOT WITH PILLOWS -POSITIONING: TURN AND REPOSITION PATIENT Q 2H OR SOONER USE PILLOWS TO KEEP BONY PROMINENCES FROM DIRECT CONTACT WITH SURFACES USE REPOSITIONING WEDGES TO PROVIDE 30-DEGREE ANGLE FOR SIDE LYING POSITIONS OFFLOADING OR FOAM DRESSING TO ALL TUBING TO PREVENT MEDICAL DEVICES RELATED PRESSURE INJURY -RE-EVALUATING AND MANAGING INCONTINENCE MONITOR SKIN CONDITION DURING POSITION CHANGE DO NOT MASSAGE REDNESS, BONY PROMINENCES FREQUENT SANTO-CARE AND PROVIDE BARRIER CREAMS PRN IF SOILING MOISTURE CONTROL BY F/C AND ABSORBENT PAD TO WICK AND HOLD MOISTURE KEEP SKIN DRY AND PROTECT FROM FRICTION -MANAGE FRICTION/SHEAR/MOBILITY KEEP HOB AT THE LOWEST LEVEL OF ELEVATION NO MORE THAN 30 DEGREE UNLESS OTHERWISE CONTRAINDICATED USE LIFT SHEET OR TRANSFER DEVICE TO MOVE PATIENT AND PREVENT LATERAL SHEER. PROTECT HEELS, ELBOWS BONY PROMINENCES WITH SKIN BERRIES OR FOAM DRESSING IF EXPOSED TO FRICTION OFFLOAD BILATERAL HEELS BY PLACING PILLOWS UNDER CALVES AT ALL TIMES, UNLESS OTHERWISE CONTRAINDICATED -PRESSURE REDISTRIBUTION SURFACE THERAPY DEAN ISOFLEX VIDAL MATTRESS -NUTRITION: PLEASE FOLLOW RD RECOMMENDATIONS AND OFFER NUTRITION SUPPLEMENTS IF ORDERED. PLEASE CONTACT WOUND CARE NURSE FOR ANY QUESTION AND CHANGE OF WOUND CONDITION.
--- NOTE | 2023-03-06 14:08 | NUR ---
SEDATED GOOD CHEST RISE ENDOTRACHEAL SUCTION FOR MODERATE THIN YELLOW/HAZY WITH BLOOD TINGE SECRETIONS IMPROVED PATENCY
--- NOTE | 2023-03-06 17:15 | NUR ---
SEDATED RESTING COMFORTABLY GOOD CHEST RISE HEMODIALYSIS IN PROGRESS
--- NOTE | 2023-03-06 17:35 | NUR ---
son at bedside after father left, questioning the dialysis nurse about mom status
[2023-03-06] MEDS: PIPERACILLIN/TAZOBACTAM 3.375 GM in DEXTROSE 5% 50 ML IV SCH (20:23)
[2023-03-06] MEDS: VASOPRESSIN 40 UNITS in NACL 0.9% 250 ML IV SCH (20:25)
[2023-03-07] VITALS (32 sets, daily range): BP systolic 81–121; BP diastolic 48–82
[2023-03-07] MEDS: BLOOD GLUCOSE MONITORING 1 DEV DEV FS SCH ×6 (00:24→20:00)
[2023-03-07] MEDS: DEXT 5% / NACL 0.9% 500 ML IV SCH ×2 (00:25→13:29)
[2023-03-07] MEDS: Z-GUARD PASTE TP SCH ×2 (01:00→13:29)
[2023-03-07] MEDS: ALBUTEROL SULFATE/IPRATROPIU 3 ML SOL IH SCH ×4 (01:22→19:36)
[2023-03-07] MEDS ORDERED: DEXMEDETOMIDINE HCL 100 MCG/ML 2 ML VIAL IV ONE (04:44)
[2023-03-07 05:12] LABS: BASOPHILS % (AUTO) 0.2 % (0.0-2.0); EOSINOPHILS % (AUTO) 0.1 % (0.0-4.0); HEMATOCRIT 20.2 % (36-48); LYMPHOCYTES # (AUTO) 1.8 K/uL (2.5-16.5); LYMPHOCYTES % (AUTO) 23.3 % (20.5-51.1); MEAN CORPUSCULAR HEMOGLOBIN 25 pg (27-31); MEAN CORPUSCULAR HGB CONC 33 g/dL (33-37); MEAN CORPUSCULAR VOLUME 76.2 fL (80-94); MONOCYTES # (AUTO) 0.1 K/uL (0.8-1.0); MONOCYTES % (AUTO) 1.3 % (1.7-9.3); NEUTROPHILS # (AUTO) 5.8 K/uL (1.8-7.7); NEUTROPHILS % (AUTO) 75.1 % (42.2-75.2); RED BLOOD CELL COUNT(AUTO) 2.64 MIL/uL (4.20-5.40); RED CELL DISTRIBUTION WIDTH 22.4 % (11.6-13.7); WHITE BLOOD COUNT (AUTO) 7.7 K/uL (4.8-10.8)
[2023-03-07 05:42] LABS: HEMOGLOBIN 6.7 g/dL (12.0-16.0)
[2023-03-07 05:43] LABS: ANION GAP 19.4 (8-16); CARBON DIOXIDE 25.2 mmol/L (21-32); POTASSIUM 4.6 mmol/L (3.5-5.1)
[2023-03-07 05:44] LABS: PLATELET COUNT (AUTO) 10 K/uL (140-450)
[2023-03-07 05:47] LABS: CREATININE 5.6 mg/dL (0.6-1.3)
--- NOTE | 2023-03-07 05:54 | NUR ---
Notified Dr. Nash, hemoglobin is 6.7, Dr. Cruz is rehabilitation physician, stated he will put the order for blood transfusion in the computer. ICU chaarged nurse awared.
[2023-03-07] MEDS: DEXMEDETOMIDINE HCL 400 MCG in NACL 0.9% 96 ML IV PRN (05:59)
[2023-03-07 06:08] LABS: HEPATITIS A ANTIBODY IGM Negative (Negative); HEPATITIS B CORE AB TOTAL Negative (Negative); HEPATITIS B SURFACE ANTIBODY Non Reactive (.); HEPATITIS B SURFACE ANTIGEN Negative (Negative)
--- NOTE | 2023-03-07 08:13 | NUR ---
AT BEDSIDE AT THIS TIME
--- NOTE | 2023-03-07 08:13 | NUR ---
SMELLS OF ALCOHOL
[2023-03-07] MEDS: CHLORHEXADINE GLUC 2% CLOTH TP SCH (08:41)
[2023-03-07] MEDS: MUPIROCIN CA NASAL 2% 1GM TUBE NS SCH (08:41)
[2023-03-07] MEDS: PIPERACILLIN/TAZOBACTAM 3.375 GM in DEXTROSE 5% 50 ML IV SCH ×2 (08:56→21:22)
--- NOTE | 2023-03-07 09:20 | NUR ---
XRAY AT BEDSIDE AT THIS TIME
--- NOTE | 2023-03-07 10:09 | NUR ---
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 ARTERIAL US AT BEDSIDE AT THIS TIME
--- NOTE | 2023-03-07 10:21 | NUR ---
NIECE AT BEDSIDE AT THIS TIME
[2023-03-07] MEDS: NITROGLYCERIN 2% 1 GM PKT TP SCH (13:00)
--- NOTE | 2023-03-07 13:19 | NUR ---
Notified machine feeder raw stock regarding dialysis orders
[2023-03-07] MEDS: FOAM DRESSING TP SCH (13:30)
[2023-03-07] MEDS: NON ADHERENT DRESSING TP SCH (13:30)
[2023-03-07] MEDS: NOREPINEPHRINE 16 MG in DEXTROSE 5% 250 ML IV PRN (13:31)
--- NOTE | 2023-03-07 15:30 | NUR ---
DC PLANNING ASSESSMENT COMPLETE PLEASE REFER TO ASSESSMENT FOR ADDITIONAL DETAILS TENTATIVE DC PLAN DEPENDENT ON PHYSICIANS RECOMMENDATIONS. SW ACTIVELY LISTENED TO PTS REPORT DISSATISFACTION WITH CARE PT HAS BEEN RECEIVING. SW APOLOGIZED PROFUSELY AND REPORTED TO PT THAT CONCERNS WOULD BE ESCALATED TO ADMIN. JAYMIE STILL UPSET HOWEVER, VERBALIZED UNDERSTANDING. Addendum: 03/07/23 at 1531 by Amanda MARTINEZ Amended: Links added.
--- NOTE | 2023-03-07 16:31 | NUR ---
FAMILY AT BEDSIDE AT THIS TIME, STATED HE SPOKE TO THE PRIMARY FOR POSSIBLE AMPUTATION. SO THE INFECTION WONT SPREAD?
[2023-03-08] VITALS (32 sets, daily range): BP systolic 107–138; BP diastolic 64–81
[2023-03-08] MEDS: DEXT 5% / NACL 0.9% 500 ML IV SCH ×3 (01:14→19:30)
[2023-03-08] MEDS: Z-GUARD PASTE TP SCH ×2 (01:14→13:34)
[2023-03-08] MEDS: ALBUTEROL SULFATE/IPRATROPIU 3 ML SOL IH SCH ×4 (01:17→19:20)
[2023-03-08] MEDS: BLOOD GLUCOSE MONITORING 1 DEV DEV FS SCH ×6 (04:00→20:28)
[2023-03-08 05:12] LABS: HEMATOCRIT 24.9 % (36-48); HEMOGLOBIN 8.4 g/dL (12.0-16.0); MEAN CORPUSCULAR HEMOGLOBIN 26 pg (27-31); MEAN CORPUSCULAR HGB CONC 34 g/dL (33-37); MEAN CORPUSCULAR VOLUME 77.7 fL (80-94); PLATELET COUNT (AUTO) 41 K/uL (140-450); RED CELL DISTRIBUTION WIDTH 21.3 % (11.6-13.7); WHITE BLOOD COUNT (AUTO) 6.9 K/uL (4.8-10.8)
[2023-03-08 05:28] LABS: ALBUMIN 1.8 g/dL (3.4-5.0); ANION GAP 19.5 (8-16); CARBON DIOXIDE 24.2 mmol/L (21-32); POTASSIUM 4.7 mmol/L (3.5-5.1); TOTAL BILIRUBIN 5.2 mg/dL (0.0-1.0)
[2023-03-08 06:14] LABS: BASOPHILS % (MANUAL) 0 % (0-2); EOSINOPHILS % (MANUAL) 1 % (0-4); LYMPHOCYTES % (MANUAL) 10 % (20-46); MONOCYTES % (MANUAL) 5 % (5-12); PLATELET COUNT,MANUAL 30 K/uL (150-450)
[2023-03-08 06:25] LABS: CREATININE 4.3 mg/dL (0.6-1.3)
--- NOTE | 2023-03-08 07:48 | NUR ---
RECEIVED PT ON [facility] TV425, F20, IT 0.80, PEEP 5, 30%. SATURATION 99%, WILL TITRATE FIO2, COARSE BREATH SOUNDS, SUCTIONED OUT MODERATE AMOUNT OF BROWN SECRETIONS. VENT PLUGGED INTO RED OUTLET, WHEELS ARE LOCKED, AMBUBAG AT BEDSIDE, ALARMS ARE SET AND AUDIBLE. WILL CONTINUE TO MONITOR.
[2023-03-08] MEDS: PIPERACILLIN/TAZOBACTAM 3.375 GM in DEXTROSE 5% 50 ML IV SCH ×2 (09:00→20:28)
[2023-03-08] MEDS: MUPIROCIN CA NASAL 2% 1GM TUBE NS SCH (09:40)
[2023-03-08] MEDS: CHLORHEXADINE GLUC 2% CLOTH TP SCH (09:40)
--- NOTE | 2023-03-08 09:56 | NUR ---
an son at bedside at this time, stated " you are getting better everyday that we come here"
--- NOTE | 2023-03-08 13:24 | NUR ---
pt wounds progressive worse ,heels off loaded , wound treatment provided as ordered
[2023-03-08] MEDS: FOAM DRESSING TP SCH (13:33)
[2023-03-08] MEDS: NON ADHERENT DRESSING TP SCH (13:35)
[2023-03-08] MEDS: NITROGLYCERIN 2% 1 GM PKT TP SCH (13:45)
--- NOTE | 2023-03-08 14:36 | NUR ---
03/08/23 RD FOLLOW UP COMPLETED PLEASE REFER TO NUTRITION ASSESSMENT UNDER CARE ACTIVITY FOR ESTIMATED NUTRITIONAL NEEDS. 1. CONTINUE ON NPO EXCEPT MEDS DIET TOLERATED OR PER MD. 2. MONITOR GI, PO INTAKE, AND NUTRITION RELATED LAB VALUES. 3. RD TO FOLLOW-UP 2-3 DAYS, HIGH RISK ANNA RUFF RD
--- NOTE | 2023-03-08 14:41 | NUR ---
pt receiving hd at this time
--- NOTE | 2023-03-08 15:03 | NUR ---
son at bedside at this time
--- NOTE | 2023-03-08 15:12 | NUR ---
son at bedside questioning dialysis nurse regarding moms feet , stated why haven t you guys done the CT,I educated son that we are doing our best and she apperars to be improving but she is still critical and anything can happen,. However, pointing out issues against staff is inappropriate eveytime you guys visit.
--- NOTE | 2023-03-08 17:22 | NUR ---
AT BEDSIDE AT THIS TIME
--- NOTE | 2023-03-08 17:30 | NUR ---
[facility] REGARDING THE NUMBERS ON THE VENT
[2023-03-08 18:00] LABS: HEMATOCRIT 25.8 % (36-48); HEMOGLOBIN 8.7 g/dL (12.0-16.0)
--- NOTE | 2023-03-08 19:20 | NUR ---
RECEIVED REPORT FROM AM SHIFT. PATIENT WAS SEEN AND ASSESSED. PATIENT IS SEDATED AND INTUBATED WITH ETT SIZE 7.5 AND SECURED WITH A BITING BLOCK ANCHOR-FAST 21cm @ TEETH. PATIENT IS ON VENTILATOR SUPPORT. VENT SETTINGS: AC/PRVC RR 20, VT 425, PEEP 5, FiO2 28% WITH SPO2 OF 94%. VENTILATOR PLUGGED IN RED OUTLET. VENTILATOR ALARMS SET APPROPRIATELY AND AUDIBLE TO ENVIRONMENT. AMBU BAG AT BEDSIDE. HEAD OF BED GREATER THAN 30 DEGREES. NOTICED ADEQUATE BILATERAL CHEST RISE AND FALL. PATIENT IS IN NO RESPIRATORY DISTRESS AT THIS TIME. SUCTIONED SMALL CLEAR/WHITE THIN SECRETIONS FROM ETT AND SMALL WHITE THIN ORALLY. ORAL CARE WAS DONE AND PT TOLERATED WELL. BILATERAL BREATH SOUNDS ON AUSCULTATION; UPPER LOBES: COARSE CRACKLES LOWER LOBES: COARSE CRACKLES PEAK PRESSURE: 22 cmH20 PLATEAU PRESSURE: 21 cmH20 DRIVING PRESSURE: 16 cmH20 WILL CONTINUE TO MONITOR PATIENT. SCHEDULE TX GIVEN ORDERED AND PT TOLERATED WELL WITH NO ADVERSE REACTION WILL CONTINUE TO MONITOR PATIENT.
[2023-03-09] VITALS (36 sets, daily range): BP systolic 109–143; BP diastolic 53–86
[2023-03-09] MEDS: Z-GUARD PASTE TP SCH ×2 (00:17→13:00)
[2023-03-09] MEDS: BLOOD GLUCOSE MONITORING 1 DEV DEV FS SCH ×6 (00:26→20:57)
[2023-03-09] MEDS: ALBUTEROL SULFATE/IPRATROPIU 3 ML SOL IH SCH ×4 (02:17→19:16)
[2023-03-09] MEDS: DEXMEDETOMIDINE HCL 400 MCG in NACL 0.9% 96 ML IV PRN (04:03)
[2023-03-09 05:15] LABS: BASOPHILS % (AUTO) 0.1 % (0.0-2.0); EOSINOPHILS % (AUTO) 0.1 % (0.0-4.0); HEMATOCRIT 22.5 % (36-48); HEMOGLOBIN 7.6 g/dL (12.0-16.0); LYMPHOCYTES # (AUTO) 0.7 K/uL (2.5-16.5); LYMPHOCYTES % (AUTO) 8.8 % (20.5-51.1); MEAN CORPUSCULAR HEMOGLOBIN 26 pg (27-31); MEAN CORPUSCULAR HGB CONC 34 g/dL (33-37); MEAN CORPUSCULAR VOLUME 77.9 fL (80-94); MONOCYTES # (AUTO) 0.3 K/uL (0.8-1.0); MONOCYTES % (AUTO) 3.7 % (1.7-9.3); NEUTROPHILS # (AUTO) 6.9 K/uL (1.8-7.7); NEUTROPHILS % (AUTO) 87.3 % (42.2-75.2); PLATELET COUNT (AUTO) 69 K/uL (140-450); RED BLOOD CELL COUNT(AUTO) 2.89 MIL/uL (4.20-5.40); RED CELL DISTRIBUTION WIDTH 21.2 % (11.6-13.7)
[2023-03-09 05:32] LABS: ALBUMIN 1.7 g/dL (3.4-5.0); ANION GAP 15.2 (8-16); CARBON DIOXIDE 30.8 mmol/L (21-32); CREATININE 3.8 mg/dL (0.6-1.3); TOTAL BILIRUBIN 4.8 mg/dL (0.0-1.0)
--- NOTE | 2023-03-09 08:31 | NUR ---
AT BEDSIDE AT THIS TIME
[2023-03-09] MEDS: MUPIROCIN CA NASAL 2% 1GM TUBE NS SCH (08:34)
[2023-03-09] MEDS: CHLORHEXADINE GLUC 2% CLOTH TP SCH (08:34)
[2023-03-09] MEDS: PIPERACILLIN/TAZOBACTAM 3.375 GM in DEXTROSE 5% 50 ML IV SCH ×2 (08:54→20:16)
--- NOTE | 2023-03-09 09:20 | NUR ---
PLACED PATIENT ON CPAP OF 5 WITH PEEP OF 5. PATIENT IS AWAKE AND ALERT. PATIENT IS FOLLOWING COMMANDS BUT GRIMACES. PATIENT AIRWAY IS PATENT AND SECURE WITH TUBE GAYTAN. AMBU BAG IS AT BEDSIDE. VENTILATOR WHEELS ARE LOCKED AND VENTILATOR IS PLUGGED INTO RED OUTLET. ALARMS ARE SET AND AUDIBLE TO ENVIRONMENT. ADEQUATE CHEST RISE AND FALL NOTED. BREATH SOUNDS ARE BILATERAL TO AUSCULTATION. PATIENT SHOWS NO SIGNS OF RESPIRATORY DISTRESS. WILL CONTINUE TO MONITOR.
--- NOTE | 2023-03-09 09:28 | NUR ---
WEANING TRIALS AT THIS TIME, PT IS GETTING THE VOLUME, RATE NOT HIGH BUT TOLERATING
[2023-03-09] MEDS ORDERED: TPN PER PHARMACY MC PRN (10:30)
--- NOTE | 2023-03-09 10:30 | NUR ---
PATIENT RETURNED TO PREVIOUS VENTILATOR SETTINGS DUE TO ELEVATED RESPIRATORY RATE. RN AND MD NOTIFIED. WILL CONTINUE TO MONITOR.
--- NOTE | 2023-03-09 10:53 | NUR ---
FATHER AND SON AT BEDSIDE
[2023-03-09 11:37] LABS: MAGNESIUM 2.1 mg/dL (1.8-2.4); PHOSPHORUS 4.1 mg/dL (2.5-4.9)
[2023-03-09] MEDS: NOREPINEPHRINE 16 MG in DEXTROSE 5% 250 ML IV PRN (12:56)
[2023-03-09] MEDS: NON ADHERENT DRESSING TP SCH (13:00)
[2023-03-09] MEDS: FOAM DRESSING TP SCH (13:00)
[2023-03-09] MEDS: NITROGLYCERIN 2% 1 GM PKT TP SCH (13:00)
--- NOTE | 2023-03-09 13:48 | NUR ---
AND SON AT BEDSIDE AT THIS TIME
--- NOTE | 2023-03-09 19:30 | NUR ---
TANIAAR SU CALLAHAN(RN) AWARE TO F/U WITH H/H AND TUBE FEEDING
--- NOTE | 2023-03-09 19:30 | NUR ---
RECEIVED REPORT FROM AM SHIFT. PATIENT WAS SEEN AND ASSESSED. PATIENT IS SEDATED AND INTUBATED WITH ETT SIZE 7.5 AND SECURED WITH A BITING BLOCK ANCHOR-FAST 21cm @ TEETH. PATIENT IS ON VENTILATOR SUPPORT. VENT SETTINGS: AC/PRVC RR 20, VT 425, PEEP 5, FiO2 28% WITH SPO2 OF 93%. VENTILATOR PLUGGED IN RED OUTLET. VENTILATOR ALARMS SET APPROPRIATELY AND AUDIBLE TO ENVIRONMENT. AMBU BAG AT BEDSIDE. HEAD OF BED GREATER THAN 30 DEGREES. NOTICED ADEQUATE BILATERAL CHEST RISE AND FALL. PATIENT IS IN NO RESPIRATORY DISTRESS AT THIS TIME. SUCTIONED SMALL CLEAR/WHITE THIN SECRETIONS FROM ETT AND SMALL WHITE THIN ORALLY. ORAL CARE WAS DONE AND PT TOLERATED WELL. BILATERAL BREATH SOUNDS ON AUSCULTATION; UPPER LOBES: COARSE CRACKLES LOWER LOBES: COARSE CRACKLES PEAK PRESSURE: 22 cmH20 PLATEAU PRESSURE: 20 cmH20 DRIVING PRESSURE: 15 cmH20 WILL CONTINUE TO MONITOR PATIENT. SCHEDULE TX GIVEN ORDERED AND PT TOLERATED WELL WITH NO ADVERSE REACTION WILL CONTINUE TO MONITOR PATIENT.
[2023-03-09] MEDS ORDERED: VANCOMYCIN 750 MG in DEXTROSE 5% 250 ML IV SCH (20:00)
--- NOTE | 2023-03-09 20:00 | NUR ---
eyes opened. skin warm/dry. vented orally. ac28, tv-425,fio2-28%peep-5. suctioned, repositioned. iv cont. 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 repositioned. noted blister to left side abdomen with dressing on. ngt. checked in right position vital1.2 10ml to start , abdomen hard to touch and distented. hg-7.0. charge nurse notified will recheck am lab.sons visited.health teaching done mostly about pt. concern. sleep intermitently close monitoring.
[2023-03-10] VITALS (34 sets, daily range): BP systolic 96–130; BP diastolic 23–77
[2023-03-10] MEDS: ALBUTEROL SULFATE/IPRATROPIU 3 ML SOL IH SCH ×4 (00:43→18:53)
[2023-03-10] MEDS: Z-GUARD PASTE TP SCH ×2 (00:54→13:06)
[2023-03-10] MEDS: BLOOD GLUCOSE MONITORING 1 DEV DEV FS SCH ×6 (00:54→20:00)
[2023-03-10 05:31] LABS: BASOPHILS % (AUTO) 0.2 % (0.0-2.0); EOSINOPHILS % (AUTO) 0.3 % (0.0-4.0); HEMATOCRIT 20.4 % (36-48); LYMPHOCYTES # (AUTO) 0.9 K/uL (2.5-16.5); LYMPHOCYTES % (AUTO) 12.2 % (20.5-51.1); MEAN CORPUSCULAR HEMOGLOBIN 27 pg (27-31); MEAN CORPUSCULAR HGB CONC 34 g/dL (33-37); MONOCYTES # (AUTO) 0.3 K/uL (0.8-1.0); MONOCYTES % (AUTO) 3.6 % (1.7-9.3); NEUTROPHILS # (AUTO) 6.2 K/uL (1.8-7.7); NEUTROPHILS % (AUTO) 83.7 % (42.2-75.2); PLATELET COUNT (AUTO) 104 K/uL (140-450); RED BLOOD CELL COUNT(AUTO) 2.58 MIL/uL (4.20-5.40); RED CELL DISTRIBUTION WIDTH 21.8 % (11.6-13.7); WHITE BLOOD COUNT (AUTO) 7.4 K/uL (4.8-10.8)
[2023-03-10 06:01] LABS: ALBUMIN 1.7 g/dL (3.4-5.0); CARBON DIOXIDE 27.6 mmol/L (21-32); POTASSIUM 4.6 mmol/L (3.5-5.1); TOTAL BILIRUBIN 3.5 mg/dL (0.0-1.0)
[2023-03-10 06:26] LABS: HEMOGLOBIN 6.8 g/dL (12.0-16.0)
[2023-03-10 06:27] LABS: CREATININE 5.3 mg/dL (0.6-1.3)
--- NOTE | 2023-03-10 07:15 | NUR ---
RECEIVED BEDSIDE REPORT FROM INSULATOR TECHNICIAN SINDY ERVIN. PT IS AWAKE, ABLE TO FOLLOW SIMPLE COMMAND. ETT TO VENT, AC PRVC FIO2 28%, VT 425, RATE 20, PEEP. SR ON MONITOR. PICC TO YEHUDA, INFUSING D5 NS @ 20ML/H, PRECEDEX 0.1MCG/KG/H, VASOPRESSIN @ 0.03 UNIT/MIN, TKO NS @ 2MLS/H. NG TUBE TO TUBE FEEDING, VITAL 1.2, 20 MLS/H, FWF 100 MLS Q 4H. SEE WOUND ASSESSMENT. HOB ELEVATED, BED TO LOWEST POSITION. SAFETY PRECAUTION IN PLACE, WILL CONTINUE TO MONITOR.
--- NOTE | 2023-03-10 08:15 | NUR ---
DR GALLO ROUNDING AT BEDSIDE. UPDATED PT INFORMATION. WILL DO HD AT BEDSIDE TODAY.
[2023-03-10] MEDS: MUPIROCIN CA NASAL 2% 1GM TUBE NS SCH (08:16)
[2023-03-10] MEDS: PIPERACILLIN/TAZOBACTAM 3.375 GM in DEXTROSE 5% 50 ML IV SCH ×2 (08:16→21:37)
[2023-03-10] MEDS: CHLORHEXADINE GLUC 2% CLOTH TP SCH (08:17)
--- NOTE | 2023-03-10 10:15 | NUR ---
DR MANZANARES ROUNDING AT BEDSIDE. UPDATED PT INFORMATION.
--- NOTE | 2023-03-10 11:19 | NUR ---
BLOOD TRANSFUSION STARTED AT BEDSIDE. VS TAKEN, TEMP 97.7, PULSE 69, RR 20, GISELL 91/50, NO PAIN. Addendum: 03/10/23 at 1130 by Max Aguilar RN BP 91/50
--- NOTE | 2023-03-10 11:44 | NUR ---
DR SHAHEEN TAYLOR AT BEDSIDE. UPDATED PT INFORMATION.
[2023-03-10] MEDS: NITROGLYCERIN 2% 1 GM PKT TP SCH (13:05)
[2023-03-10] MEDS: FOAM DRESSING TP SCH (13:05)
[2023-03-10] MEDS: NON ADHERENT DRESSING TP SCH (13:05)
--- NOTE | 2023-03-10 13:25 | NUR ---
BLOOD TRANSFUSION FINISHED AT BEDSIDE.
--- NOTE | 2023-03-10 13:34 | NUR ---
03/10/23 RD FOLLOW UP COMPLETED PLEASE REFER TO NUTRITION ASSESSMENT UNDER CARE ACTIVITY FOR ESTIMATED NUTRITIONAL NEEDS. 1. RD RECOMMENDS TO SWITCH TUBE FEEDING TO NEPRO@30ML/HR WITH FWF 100 Q6H OR PER MD DUE TO KIDNEY ISSUES. THIS WILL PROVIDE THE PATIENT WITH 1296KCAL, 58GRAMS OF PROTEIN, MEETING AT LEAST 75% OF ESTIMATED NUTRITIONAL NEEDS. 2. RD RECOMMENDS ELAYNE BID WHICH WILL PROVIDE ADDITIONAL 160 CALORIES AND 5 GRAMS OF ADDITIONAL PROTEIN. 3. MONITOR GI, PO INTAKE, AND NUTRITION RELATED LAB VALUES. 4. RD TO FOLLOW-UP 2-3 DAYS, HIGH RISK ANNA RUFF RD
[2023-03-10] MEDS: VASOPRESSIN 40 UNITS in NACL 0.9% 250 ML IV SCH (15:24)
--- NOTE | 2023-03-10 15:54 | NUR ---
DR MCCARTY ROUNDING AT BEDSIDE. UPDATED PT INFORMATION
[2023-03-10 15:56] LABS: EOSINOPHILS % (AUTO) 0.6 % (0.0-4.0); HEMATOCRIT 23.2 % (36-48); HEMOGLOBIN 7.7 g/dL (12.0-16.0); LYMPHOCYTES # (AUTO) 0.6 K/uL (2.5-16.5); LYMPHOCYTES % (AUTO) 7.5 % (20.5-51.1); MEAN CORPUSCULAR HEMOGLOBIN 27 pg (27-31); MEAN CORPUSCULAR HGB CONC 33 g/dL (33-37); MEAN CORPUSCULAR VOLUME 81.4 fL (80-94); MONOCYTES # (AUTO) 0.3 K/uL (0.8-1.0); MONOCYTES % (AUTO) 4.1 % (1.7-9.3); NEUTROPHILS # (AUTO) 6.8 K/uL (1.8-7.7); NEUTROPHILS % (AUTO) 87.8 % (42.2-75.2); PLATELET COUNT (AUTO) 119 K/uL (140-450); RED BLOOD CELL COUNT(AUTO) 2.85 MIL/uL (4.20-5.40); RED CELL DISTRIBUTION WIDTH 20.4 % (11.6-13.7); WHITE BLOOD COUNT (AUTO) 7.8 K/uL (4.8-10.8)
--- NOTE | 2023-03-10 15:57 | NUR ---
HD STARTED AT BEDSIDE.
--- NOTE | 2023-03-10 19:30 | NUR ---
ENDORSED TO CRYPTOGRAPHIC MACHINE OPERATOR SINDY RN FOR CONTINUITY OF CARE. ALL QUESTIONS ANSWERED.
--- NOTE | 2023-03-10 20:00 | NUR ---
VENTED VIA ORAL ETT WITH SAME VENT. SETTING .O2 SAT-98% SUCTIONED. REPOSITIONED. CONT WITH IV VASOPRESSIN 0.03 UNITS/MIN . PRECEDEX 0.1 MCG/KG/MIN.VITAL SIGNS STABLE.SONS VISITED. EDEMA TO BOTH HANDS SUBSIDING.CLOSE MONITORING.
[2023-03-11] VITALS (28 sets, daily range): BP systolic 100–133; BP diastolic 54–77
[2023-03-11] MEDS: Z-GUARD PASTE TP SCH ×2 (01:00→14:14)
[2023-03-11] MEDS: ALBUTEROL SULFATE/IPRATROPIU 3 ML SOL IH SCH ×4 (02:22→19:40)
[2023-03-11] MEDS: BLOOD GLUCOSE MONITORING 1 DEV DEV FS SCH ×5 (04:00→20:00)
[2023-03-11 05:50] LABS: BASOPHILS % (AUTO) 0.2 % (0.0-2.0); EOSINOPHILS % (AUTO) 0.5 % (0.0-4.0); HEMATOCRIT 24.6 % (36-48); HEMOGLOBIN 8.1 g/dL (12.0-16.0); LYMPHOCYTES # (AUTO) 0.8 K/uL (2.5-16.5); LYMPHOCYTES % (AUTO) 10.6 % (20.5-51.1); MEAN CORPUSCULAR HEMOGLOBIN 27 pg (27-31); MEAN CORPUSCULAR HGB CONC 33 g/dL (33-37); MEAN CORPUSCULAR VOLUME 82.9 fL (80-94); MONOCYTES # (AUTO) 0.3 K/uL (0.8-1.0); MONOCYTES % (AUTO) 3.9 % (1.7-9.3); NEUTROPHILS # (AUTO) 6.8 K/uL (1.8-7.7); NEUTROPHILS % (AUTO) 84.8 % (42.2-75.2); PLATELET COUNT (AUTO) 168 K/uL (140-450); RED BLOOD CELL COUNT(AUTO) 2.97 MIL/uL (4.20-5.40); RED CELL DISTRIBUTION WIDTH 19.7 % (11.6-13.7)
[2023-03-11 06:27] LABS: ALBUMIN 1.7 g/dL (3.4-5.0); ANION GAP 18.9 (8-16); CARBON DIOXIDE 25.3 mmol/L (21-32); POTASSIUM 4.2 mmol/L (3.5-5.1); TOTAL BILIRUBIN 3.6 mg/dL (0.0-1.0)
[2023-03-11 07:05] LABS: CREATININE 4.2 mg/dL (0.6-1.3)
[2023-03-11] MEDS: CHLORHEXADINE GLUC 2% CLOTH TP SCH (09:00)
[2023-03-11] MEDS: PIPERACILLIN/TAZOBACTAM 3.375 GM in DEXTROSE 5% 50 ML IV SCH ×2 (09:00→22:19)
--- NOTE | 2023-03-11 09:35 | NUR ---
at bedside at this time
[2023-03-11] MEDS: MUPIROCIN CA NASAL 2% 1GM TUBE NS SCH (12:20)
[2023-03-11] MEDS: NON ADHERENT DRESSING TP SCH (13:00)
[2023-03-11] MEDS: NITROGLYCERIN 2% 1 GM PKT TP SCH (13:00)
[2023-03-11] MEDS: ALBUMIN HUMAN 25% 100 ML IV SCH ×2 (13:00→22:23)
[2023-03-11] MEDS: FOAM DRESSING TP SCH (13:00)
--- NOTE | 2023-03-11 14:09 | NUR ---
PT PLACED ON SBT AND DID NOT TOLERATE. PT QUICKLY BECAME TACHYPNEIC AND RR WAS IN 40'S. NURSE MADE AWARE. PT RETURNED TO FULL VENT SUPPORT.
[2023-03-11] MEDS ORDERED: VANCOMYCIN 750 MG in DEXTROSE 5% 250 ML IV SCH (16:00)
[2023-03-11 17:12] LABS: HEMATOCRIT 22.1 % (36-48); HEMOGLOBIN 7.4 g/dL (12.0-16.0)
--- NOTE | 2023-03-11 22:00 | NUR ---
HERE VISITING. CONVERSED HIS CONCERN ABOUT PT. CARE NO DOCTOR TO TELL PT. CONDITION, HIS EAGERNESS TO TRANSFER PT. TO ANOTHER HOSPITAL HIS CONCERN , OR WANTS TO BE UPDATED ON PT. HER PRESENT CONDITION TO KNOW MORE LIKE VENTILATOR WEANING.OOOOOOOOOOOOOOOOOOOOOOOOOOOOOOOOOOOOOOOOOOOOOOOOOOOOOOOOOOOOOOOOOOOOOOOOOOOOOOOOOOOO OOOOOOOOOOOOOOOOOOOOOOOOOOOOOOOOOOOOOOOOOOOOOOOOOOOOOOOOOOOOOOOOOOOOOOOOOOOOOOOOOOOOOOOOOOOO OOOOOOOOOOOOOOOOOOOOOOOOOOOOOOOOOOOOO
[2023-03-11] MEDS: ACETAMINOPHEN 325 MG TAB PO PRN (22:42)
[2023-03-12] VITALS (32 sets, daily range): BP systolic 102–138; BP diastolic 54–79
[2023-03-12] MEDS: ALBUTEROL SULFATE/IPRATROPIU 3 ML SOL IH SCH ×4 (00:27→19:30)
[2023-03-12] MEDS: Z-GUARD PASTE TP SCH ×2 (01:00→11:56)
[2023-03-12] MEDS: BLOOD GLUCOSE MONITORING 1 DEV DEV FS SCH ×6 (04:00→20:00)
[2023-03-12] MEDS: ALBUMIN HUMAN 25% 100 ML IV SCH (05:14)
[2023-03-12 05:28] LABS: BASOPHILS % (AUTO) 0.1 % (0.0-2.0); EOSINOPHILS % (AUTO) 0.6 % (0.0-4.0); HEMATOCRIT 21.4 % (36-48); LYMPHOCYTES # (AUTO) 0.8 K/uL (2.5-16.5); LYMPHOCYTES % (AUTO) 9.7 % (20.5-51.1); MEAN CORPUSCULAR HEMOGLOBIN 27 pg (27-31); MEAN CORPUSCULAR HGB CONC 33 g/dL (33-37); MEAN CORPUSCULAR VOLUME 82.2 fL (80-94); MONOCYTES # (AUTO) 0.4 K/uL (0.8-1.0); MONOCYTES % (AUTO) 4.9 % (1.7-9.3); NEUTROPHILS # (AUTO) 6.6 K/uL (1.8-7.7); NEUTROPHILS % (AUTO) 84.7 % (42.2-75.2); PLATELET COUNT (AUTO) 273 K/uL (140-450); RED BLOOD CELL COUNT(AUTO) 2.61 MIL/uL (4.20-5.40); RED CELL DISTRIBUTION WIDTH 20.1 % (11.6-13.7); WHITE BLOOD COUNT (AUTO) 7.7 K/uL (4.8-10.8)
[2023-03-12 05:56] LABS: ALBUMIN 2.3 g/dL (3.4-5.0); ANION GAP 21.3 (8-16); CARBON DIOXIDE 24.1 mmol/L (21-32); POTASSIUM 4.4 mmol/L (3.5-5.1); TOTAL BILIRUBIN 3.3 mg/dL (0.0-1.0)
[2023-03-12 06:14] LABS: CREATININE 5.9 mg/dL (0.6-1.3)
--- NOTE | 2023-03-12 07:15 | NUR ---
Opening Received report on pt. Pt awake, intubated on ventilator, in no signs of pain or distress, watching TV. On precedex drip. Per RN, vasopressin drip was turned off last night. NGT with feeding. Caban in place with minimal urine draining to gravity.
[2023-03-12] MEDS: PIPERACILLIN/TAZOBACTAM 3.375 GM in DEXTROSE 5% 50 ML IV SCH ×2 (08:07→21:03)
[2023-03-12] MEDS: MUPIROCIN CA NASAL 2% 1GM TUBE NS SCH (08:10)
[2023-03-12] MEDS: CHLORHEXADINE GLUC 2% CLOTH TP SCH (08:11)
--- NOTE | 2023-03-12 08:20 | NUR ---
PLACED PATIENT ON BREATHING TRIAL WITH PRESSURE SUPPORT OF 5. PATIENT WAS AWAKE AND ALERT BUT BECAME TACHYPNEIC SHORTLY AFTER. RESPIRATORY RATE INCREASED TO 40S. RN AND NOTIFIED. WILL CONTINUE TO MONITOR AND ATTEMPT BREATHING TRIAL LATER TODAY. Addendum: 03/12/23 at 1401 by ISMAEL VIDES RT PLACED PATIENT ON BREATHING TRIAL WITH PRESSURE SUPPORT OF 5. PATIENT WAS AWAKE AND ALERT BUT BECAME TACHYPNEIC SHORTLY AFTER. RESPIRATORY RATE INCREASED TO 40'S. AT BEDSIDE AT THIS TIME. RN AND NOTIFIED. WILL CONTINUE TO MONITOR AND ATTEMPT BREATHING TRIAL LATER TODAY.
--- NOTE | 2023-03-12 08:30 | NUR ---
Dr. Fields rounding on patient and discussing plan of care with patient's , Chidi.
--- NOTE | 2023-03-12 09:47 | NUR ---
Dr. Tariq rounding on patient, discussing plan of care with patient's Liatorre at bedside.
--- NOTE | 2023-03-12 10:30 | NUR ---
Dr. Yap rounding on pt. Dialysis ordered for today, informed insurance adjuster.
[2023-03-12] MEDS: FOAM DRESSING TP SCH (11:55)
[2023-03-12] MEDS: NON ADHERENT DRESSING TP SCH (11:56)
[2023-03-12] MEDS: NITROGLYCERIN 2% 1 GM PKT TP SCH (13:23)
--- NOTE | 2023-03-12 13:29 | NUR ---
03/12/23 RD FOLLOW UP COMPLETED PLEASE REFER TO NUTRITION ASSESSMENT UNDER CARE ACTIVITY FOR ESTIMATED NUTRITIONAL NEEDS. 1. RD RECOMMENDS TO SWITCH TUBE FEEDING TO NEPRO@30ML/HR WITH FWF 100 Q6H OR PER MD DUE TO KIDNEY ISSUES. THIS WILL PROVIDE THE PATIENT WITH 1296KCAL, 58GRAMS OF PROTEIN, MEETING AT LEAST 75% OF ESTIMATED NUTRITIONAL NEEDS. 2. RD RECOMMENDS ELAYNE BID WHICH WILL PROVIDE ADDITIONAL 160 CALORIES AND 5 GRAMS OF ADDITIONAL PROTEIN. 3. RD TO FOLLOW-UP 2-3 DAYS, HIGH RISK ANNA RUFF RD
--- NOTE | 2023-03-12 14:02 | NUR ---
WILL CONTINUE SPONTANEOUS BREATHING TRIALS TOMORROW, PATIENT RESPIRATORY RATE CONTINUES TO BE ELEVATED AT THIS TIME. WILL CONTINUE TO MONITOR.
--- NOTE | 2023-03-12 15:00 | NUR ---
Dialysis being done at bedside by quality systems specialist. 1 unit PRBC blood transfusion initiated with dialysis
--- NOTE | 2023-03-12 17:30 | NUR ---
PICC line dressing change done with sterile technique.
[2023-03-12 17:46] LABS: HEMATOCRIT 29.3 % (36-48); HEMOGLOBIN 9.9 g/dL (12.0-16.0)
--- NOTE | 2023-03-12 18:43 | NUR ---
Closing Summary Pt remains intubated and sedated with precedex. Pt in no signs of pain or distress. Pt's Chidi updated with plan of care and current condition. Pt received 1 unit PRBC with dialysis. Inquired with Dr. Rebolledo regarding potential amputation, Dr. Rebolledo states he will assess and look into pt's chart. Dr. Jerniganja aware of pt's CT scan results and ABG, no new orders made. Caban draining urine to gravity. Will endorse plan of care RN.
[2023-03-12] MEDS: DEXMEDETOMIDINE HCL 400 MCG in NACL 0.9% 96 ML IV PRN (23:40)
[2023-03-13] VITALS (24 sets, daily range): BP systolic 103–133; BP diastolic 60–96
[2023-03-13] MEDS: BLOOD GLUCOSE MONITORING 1 DEV DEV FS SCH ×6 (00:49→20:00)
[2023-03-13] MEDS: Z-GUARD PASTE TP SCH ×2 (00:49→13:00)
[2023-03-13] MEDS: ALBUTEROL SULFATE/IPRATROPIU 3 ML SOL IH SCH ×4 (01:02→20:24)
[2023-03-13 05:41] LABS: BASOPHILS % (AUTO) 0.1 % (0.0-2.0); EOSINOPHILS # (AUTO) 0.1 K/uL (0-0.4); EOSINOPHILS % (AUTO) 0.8 % (0.0-4.0); HEMATOCRIT 25.8 % (36-48); HEMOGLOBIN 8.7 g/dL (12.0-16.0); LYMPHOCYTES # (AUTO) 0.8 K/uL (2.5-16.5); LYMPHOCYTES % (AUTO) 9.6 % (20.5-51.1); MEAN CORPUSCULAR HEMOGLOBIN 28 pg (27-31); MEAN CORPUSCULAR HGB CONC 34 g/dL (33-37); MEAN CORPUSCULAR VOLUME 84.1 fL (80-94); MONOCYTES # (AUTO) 0.4 K/uL (0.8-1.0); MONOCYTES % (AUTO) 4.7 % (1.7-9.3); NEUTROPHILS % (AUTO) 84.8 % (42.2-75.2); PLATELET COUNT (AUTO) 343 K/uL (140-450); RED BLOOD CELL COUNT(AUTO) 3.07 MIL/uL (4.20-5.40); RED CELL DISTRIBUTION WIDTH 18.4 % (11.6-13.7); WHITE BLOOD COUNT (AUTO) 8.3 K/uL (4.8-10.8)
[2023-03-13 06:24] LABS: ALBUMIN 2.2 g/dL (3.4-5.0); ANION GAP 18.1 (8-16); CARBON DIOXIDE 26.6 mmol/L (21-32); CREATININE 3.7 mg/dL (0.6-1.3); POTASSIUM 3.7 mmol/L (3.5-5.1); TOTAL BILIRUBIN 3.2 mg/dL (0.0-1.0)
--- NOTE | 2023-03-13 07:30 | NUR ---
Report received from senior java j2ee developer RN. Pt. with no acute distress. Pt. remains orally intubated intact, with ventilator at 24 FiO2, rate: 20, Peep 5, pt. tolerating with no difficulty. Pt. Tachypneic at times, positive even chest expansion, trachea midline. PICC line to Right upper arm intact with sterile dressing in place, waite cath draining yellow urine to gravity. Precedex sedation infusing without difficulty at 0.3 mcg/kg/hr. Nepro tube feeding in place via NG tube intact at 30 ml/hr with no signs of aspiration HOB at 30 degrees. Multiple skin issues per previous railcar foreman.
--- NOTE | 2023-03-13 08:20 | NUR ---
0810 PLACED PATIENT ON CPAP OF 5 TO ATTEMPT BREATHING TRIAL. PATIENT QUICKLY BECAME TACHYPNEIC. PATIENT'S RESPIRATORY RATE INCREASED TO THE 40'S. RN NOTIFIED AT THIS TIME. WILL CONTINUE TO MONITOR.
[2023-03-13] MEDS: CHLORHEXADINE GLUC 2% CLOTH TP SCH (09:00)
[2023-03-13] MEDS: PIPERACILLIN/TAZOBACTAM 3.375 GM in DEXTROSE 5% 50 ML IV SCH ×2 (09:00→14:15)
--- NOTE | 2023-03-13 11:15 | NUR ---
SEEN BY SAMANTHA ALMAGUER AT BEDSIDE NO ORDER RECEIVED .
--- NOTE | 2023-03-13 11:50 | NUR ---
SEEN BY DR. MCCARTY AT BEDSIDE , RT REPORT THE VENT SETTING AND WEANING TRAIL . HE HAS DISCUSSION WITH THE ,WILL ORDER MRI AND CONSULTHE NEUROLOGIST.
--- NOTE | 2023-03-13 12:30 | NUR ---
PT. WITH NO ACUTE DISTRESS. NO SOB, REMAINS INTUBATED. IV FLUIDS INFUSING WITH NO DIFF. PICC LINE DRESSING TO RIGHT UPPER ARM INTACT. HERNANDEZ IN PLACE DRAINING TO GRAVITY. PT. WITH NO SIGS OF PAIN OR DISCOMFORT. NO CHANGE IN STATUS WITH SKIN BREAKDOWN. WILL CONT TO MONITOR
[2023-03-13] MEDS: NON ADHERENT DRESSING TP SCH (13:00)
[2023-03-13] MEDS: FOAM DRESSING TP SCH (13:00)
--- NOTE | 2023-03-13 13:00 | NUR ---
NG tube feeing in place with 300 cc of residual from NGT feeding at 30 cc/hr. Tube feeding stopped, No abd. distention noted. pt. with no c/o pain now. NGTube in place check with 20 cc of air pushed in tube, + auscultation to mid. abd. area. Tube feeding stopped for now to allow for feeding to empty from stomach
--- NOTE | 2023-03-13 13:30 | NUR ---
SAMANTHA ALMAGUER AWARE TO ORDER MRI AND WILL NOTIFY DR. OLIVA.
[2023-03-13] MEDS ORDERED: VANCOMYCIN 750 MG in DEXTROSE 5% 250 ML IV SCH (14:00)
--- NOTE | 2023-03-13 14:14 | NUR ---
SEEN BY DR GALLO AT BEDSIDE NO ORDER RECEIVED.
[2023-03-13] MEDS: NITROGLYCERIN 2% 1 GM PKT TP SCH (14:16)
--- NOTE | 2023-03-13 14:16 | NUR ---
SEEN BY DR. COTTO AT BEDSIDE , NO ORDER RECEIVED
--- NOTE | 2023-03-13 17:15 | NUR ---
Pt. tolerated C-PAP breathing for 3 hrs. with breathing under 28-30 breaths per min. Pt. placed back on regular vent. setting per RT. PT. tolerating ventilator with no difficulty. Pt. with no acute distress. Will cont. to monitor.
--- NOTE | 2023-03-13 17:15 | NUR ---
1400 PT PLACED ON SPONTANEOUS BREATHING TRIAL WITH PRESSURE SUPPORT OF 5. PT TOLERATED TRIAL FOR 3 HOURS AND HAD TO BE PLACED BACK ON PREVIOUS SETTINGS DUE TO INCREASE IN RESPIRATORY RATE. RN NOTIFIED. WILL CONTINUE TO MONITOR.
[2023-03-13 18:00] LABS: HEMATOCRIT 28.2 % (36-48); HEMOGLOBIN 9.5 g/dL (12.0-16.0)
--- NOTE | 2023-03-13 19:32 | NUR ---
Report given to incoming RN for lead person. Pt. with no change in status. Pt. remains intubated with ventilator at PRVC 24 FI, PEEP 5, tolerating with no diff. PICC in place to right arm intact with Precedex infusing with no diff. Caban in place draining to gravity. Pt. given full bed bath and all linen changed, wound dressings done, changed, and pt. left clean and stable for lead person.
--- NOTE | 2023-03-13 20:00 | NUR ---
awake,alert vented via trache with same setting. no resp. distress noted. suctioned . small amount of white mucus taken. ngt intact to left nares and feeding off. pt. pointing to abdomen .explained to pt. feeding is off. residual-70ml. noted with vaginal bleeding scanty amount. kept clean /dry.family visited. iv to right arm picc line with precedex 0.3 iv cont.mildly sedated . both feet necrotic and elevated to pillow.cont. to monitor patient.
--- NOTE | 2023-03-13 21:07 | NUR ---
RCVD PATIENT ON PRVC 425 RATE OF 20 PEEP OF 5 AND FIO2 OF 24%. VENTILATOR PLUFFED INTO RED OUTLET. AMBU BAG, FLOWMETER, AND SUCTION AT BEDSIDE. PATIENT SATING AT 97%. NO RESPIRATORY DISTRESS NOTED. CLEAR BREATH SOUNDS TO AUSCULTATION. WILL CONTINUE TO MONITOR.
[2023-03-14] VITALS (30 sets, daily range): BP systolic 114–146; BP diastolic 66–84
[2023-03-14] MEDS: Z-GUARD PASTE TP SCH ×2 (01:47→13:00)
[2023-03-14] MEDS: BLOOD GLUCOSE MONITORING 1 DEV DEV FS SCH ×2 (04:00)
--- NOTE | 2023-03-14 05:00 | NUR ---
residual rechecked-250 ml ngt feeding off abdomen soft but large.urine output-1000ml. endorsed.
[2023-03-14 05:15] LABS: BASOPHILS % (AUTO) 0.2 % (0.0-2.0); EOSINOPHILS % (AUTO) 0.4 % (0.0-4.0); HEMATOCRIT 26.7 % (36-48); HEMOGLOBIN 9.1 g/dL (12.0-16.0); LYMPHOCYTES # (AUTO) 0.6 K/uL (2.5-16.5); MEAN CORPUSCULAR HEMOGLOBIN 29 pg (27-31); MEAN CORPUSCULAR HGB CONC 34 g/dL (33-37); MEAN CORPUSCULAR VOLUME 84.5 fL (80-94); MONOCYTES # (AUTO) 0.4 K/uL (0.8-1.0); MONOCYTES % (AUTO) 4.4 % (1.7-9.3); NEUTROPHILS # (AUTO) 7.8 K/uL (1.8-7.7); PLATELET COUNT (AUTO) 443 K/uL (140-450); RED BLOOD CELL COUNT(AUTO) 3.16 MIL/uL (4.20-5.40); RED CELL DISTRIBUTION WIDTH 18.5 % (11.6-13.7); WHITE BLOOD COUNT (AUTO) 8.9 K/uL (4.8-10.8)
[2023-03-14] MEDS: ALBUTEROL SULFATE/IPRATROPIU 3 ML SOL IH SCH ×4 (05:17→19:48)
[2023-03-14 05:47] LABS: ANION GAP 22.6 (8-16); POTASSIUM 3.6 mmol/L (3.5-5.1); TOTAL BILIRUBIN 2.6 mg/dL (0.0-1.0)
--- NOTE | 2023-03-14 08:49 | NUR ---
` at bedside at this time with alot of questions for nuclear medicine medical director
--- NOTE | 2023-03-14 08:55 | NUR ---
DR CASAS ROUNDING AT BEDSIDE. UPDATED PT INFORMATION. ORDER TO DC ACCU CHECK
[2023-03-14] MEDS: PIPERACILLIN/TAZOBACTAM 3.375 GM in DEXTROSE 5% 50 ML IV SCH ×2 (09:00→21:15)
--- NOTE | 2023-03-14 09:00 | NUR ---
DR CASAS AT BEDSIDE EXPLAINING TO THE AN UPDATE, STATED TO DR CASAS THAT HIS HAS BAD BLOOD FOR 2 YEARS, STATED ONCE SHE RECIEVES BLOOD, SHE FEELS BETTER FROM [facility], DR CASAS MADE AWARE THST SHE POSSIBLY HAD A STROKE FROM THE BLOOD CLOTS FROM [facility] AND SHE MAY NOT HAVE MOVEMENT FOR LEFT ARM AND SHE MIGHT HAVE POSSIBLE AMPUTATION OF HER FEET.
--- NOTE | 2023-03-14 12:50 | NUR ---
PT PLACED ON CPAP 5 PS 10 BY PHYSICIAN AWARE OF PT QUICKLY BECOMING TACHYPNEIC . PHYSICIAN STATES TO CONTINUE DAILY CPAP TRIALS FOR 1-2 HOURS. NURSE BEDSIDE AND AWARE.
[2023-03-14] MEDS: NITROGLYCERIN 2% 1 GM PKT TP SCH (13:00)
[2023-03-14] MEDS: FOAM DRESSING TP SCH (13:00)
[2023-03-14] MEDS: NON ADHERENT DRESSING TP SCH (13:00)
--- NOTE | 2023-03-14 13:50 | NUR ---
PT RETURNED TO FULL SUPPORT MODE ON VENT PRVC MODE. PT TACHYPNEIC DURING TRIAL RR 30-38. VT RANGING FROM 390-450. PT ABLE TO OPEN EYES AND FOLLOW COMMANDS. VENT ALARMS ON AND FUNCTIONING.
--- NOTE | 2023-03-14 14:39 | NUR ---
03/14/23 RD FOLLOW UP COMPLETED PLEASE REFER TO NUTRITION ASSESSMENT UNDER CARE ACTIVITY FOR ESTIMATED NUTRITIONAL NEEDS. 1. RD RECOMMENDS TO CONTINUE ON NEPRO@40ML/HR WITH FWF 100 Q6H OR PER MD DUE TO KIDNEY ISSUES. THIS WILL PROVIDE THE PATIENT WITH 1296KCAL, 58GRAMS OF PROTEIN, MEETING AT LEAST 75% OF ESTIMATED NUTRITIONAL NEEDS. 2. RD RECOMMENDS ELAYNE BID WHICH WILL PROVIDE ADDITIONAL 160 CALORIES AND 5 GRAMS OF ADDITIONAL PROTEIN FOR WOUNDS. 3. RD TO FOLLOW-UP 2-3 DAYS, HIGH RISK ANNA RUFF RD
[2023-03-14] MEDS: ACETAMINOPHEN 325 MG TAB PO PRN (15:31)
[2023-03-14 17:01] LABS: HEMATOCRIT 31.6 % (36-48); HEMOGLOBIN 10.6 g/dL (12.0-16.0)
--- NOTE | 2023-03-14 19:50 | NUR ---
RECEIVED PT. FROM DAY SHIFT AZIZA DILLON. PT. AWAKE AND ON ETT TO VENT A/C PRVC RATE 20, TV 425, FIO2 24%, PEEP 5 AND O2 SAT 98%. BILATERAL LUNGS COARSE. EYES PERRL. ABDOMINAL SOUND HYPOACTVE. IV TO RIGHT UPPER ARM PICC LINE, INFUSING PRECEDEX DRIP AT 0.1 MCG/KG/HR AND NS TKO. SINUS RHYTHM ON THE MONITOR. NGT TO LEFT NARE RUNNING NEPRO 30ML/HR AND TOLERATING WELL, WITH MINIMAL RESIDUAL. RIGHT JUGULAR QUEENIE CATHETER CLAMPED AND WITH DRESSING. HERNANDEZ CATHETER TO GRAVITY, PATENT AND INTACT WITH CLEAR DARK CARLOS ENRIQUE COLOR URINE. SKIN WITH MULTIPLE WOUNDS. PLEASE SEE WOUND DOCUMENTATION. PERSONAL HYGIENE PROVIDED. REPOSITIONED AND PLACED IN COMFORTABLE POSITION. PROVIDED SAFE AND QUIET ENVIRONMENT. PLACE CALL LIGHT WITHIN REACH. MAKE ALL NEEDS KNOWN. NO S/S OF PAIN AND WILL ENDORSE TO THE NEXT SHIFT.
--- NOTE | 2023-03-14 19:54 | NUR ---
DR. TOWNSEND CAME, MADE ROUNDS, SEEN PT. ASSESSED PT. FEET AND NOTED THAT PT. HAS A PULSE IN THE RIGHT FOOT AND POOR PULSE IN THE LEFT FOOT. ALSO, HE SPOKE TO THE PT. WHICH IS ALERT AND ORIENTED . HE STATED THAT ALL THE FEET WITH BLACK SPOT TO PAINT IT WITH IODINE, NO NEED FOR DRESSING. WILL CARRY OUT AND WILL ENDORSE TO THE NEXT SHIFT.
--- NOTE | 2023-03-14 20:24 | NUR ---
DR. TOWNSEND (FOOT AND ANKLE MD) TALKED TO ME THAT IF IT'S POSSIBLE TO ARRANGE TRANSFER THE PT. TO [facility] FOR VASCULAR PROCEDURE (SURGERY) OF THE FEET. HE STATED THAT HE WANTS TO DO THE ANGIOGRAM AND FOR SURE THE RESULT WILL BE NEGATIVE, THAT'S WHY PT. NEEDS TO BE TRANSFERRED TO [facility]. WILL ENDORSE TO NEXT SHIFT, FOR PHYSICIAN PEDIATRICIAN TO ARRANGE. Addendum: 03/15/23 at 0656 by TERESA GUILLAUME RN CORRECTION: HE STATED THAT HE WANTS TO DO THE ANGIOGRAM AND FOR SURE THE RESULT WILL BE POSITIVE.
[2023-03-15] VITALS (31 sets, daily range): BP systolic 114–146; BP diastolic 68–93
[2023-03-15] MEDS: Z-GUARD PASTE TP SCH ×2 (01:00→12:56)
[2023-03-15] MEDS: ALBUTEROL SULFATE/IPRATROPIU 3 ML SOL IH SCH ×4 (01:52→19:16)
--- NOTE | 2023-03-15 04:19 | NUR ---
LAB CAME AND DRAWN BLOOD.
[2023-03-15] MEDS: ACETAMINOPHEN 325 MG TAB PO PRN (04:31)
[2023-03-15 05:19] LABS: BASOPHILS % (AUTO) 0.3 % (0.0-2.0); EOSINOPHILS % (AUTO) 0.4 % (0.0-4.0); HEMATOCRIT 27.7 % (36-48); HEMOGLOBIN 9.3 g/dL (12.0-16.0); LYMPHOCYTES # (AUTO) 0.6 K/uL (2.5-16.5); LYMPHOCYTES % (AUTO) 5.6 % (20.5-51.1); MEAN CORPUSCULAR HEMOGLOBIN 29 pg (27-31); MEAN CORPUSCULAR HGB CONC 34 g/dL (33-37); MEAN CORPUSCULAR VOLUME 85.4 fL (80-94); MONOCYTES # (AUTO) 0.5 K/uL (0.8-1.0); MONOCYTES % (AUTO) 4.9 % (1.7-9.3); NEUTROPHILS # (AUTO) 9.7 K/uL (1.8-7.7); NEUTROPHILS % (AUTO) 88.8 % (42.2-75.2); PLATELET COUNT (AUTO) 552 K/uL (140-450); RED BLOOD CELL COUNT(AUTO) 3.25 MIL/uL (4.20-5.40); RED CELL DISTRIBUTION WIDTH 18.9 % (11.6-13.7); WHITE BLOOD COUNT (AUTO) 10.9 K/uL (4.8-10.8)
[2023-03-15 05:43] LABS: ANION GAP 16.9 (8-16); CARBON DIOXIDE 26.8 mmol/L (21-32); CREATININE 3.7 mg/dL (0.6-1.3); POTASSIUM 3.7 mmol/L (3.5-5.1)
--- NOTE | 2023-03-15 06:00 | NUR ---
LAB CALLED FOR BUN 66 AND CREAT 3.67. WILL ENDORSE TO THE NEXT SHIFT.
--- NOTE | 2023-03-15 06:48 | NUR ---
PT. CALLED AND PROVIDED UPDATE. NO FURTHER QUESTIONS ASKED.
--- NOTE | 2023-03-15 07:22 | NUR ---
ENDORSED PT. TO DAY SHIFT AZIZA KEITH FOR CONTINUITY OF CARE. ALL QUESTIONS ANSWERED.
--- NOTE | 2023-03-15 08:06 | NUR ---
RECEIVED ON A mDialog R860 VENTILATOR PLUGGED INTO RED OUTLET TOLERATING WELL WITHOUT COMPLICATIONS NOTED TO AN ENDOTRACHEAL TUBE #7.5 SECURED AT 21cm TEETH/GUM LINE WITH AN ANCHOR FAST CUFF PRESSURE CHECKED NOTED AMBU BAG AT BEDSIDE STABLE AWAKE "WATCHING TV" MINIMAL SEDATION PRECEDEX AT 0.1mcg EQUAL CHEST RISE ENDOTRACHEAL SUCTION FOR MODERATE THIN YELLOW SECRETIONS AIRWAY PATENT Addendum: 03/15/23 at 1511 by David Martin RT REVIEWED PREVIOUS EXPIRATORY Vt AND PEAK PRESSURES; CHANGED TO MODE TO AC; SAGAR/DIRECTOR SPECIALTY NOTIFIED FOR JORDON/REGISTRY DIRECTOR SPECIALTY
[2023-03-15] MEDS: PIPERACILLIN/TAZOBACTAM 3.375 GM in DEXTROSE 5% 50 ML IV SCH ×2 (09:18→21:09)
--- NOTE | 2023-03-15 10:20 | NUR ---
RESTING WELL GOOD CHEST RISE AIRWAY PATENT
--- NOTE | 2023-03-15 10:23 | NUR ---
RADIOLOGY AT BEDSIDE FOR CHEST X-RAY; CADASTRAL ENGINEER TO ATTEMPT CPAP TRIAL AT A LATER TIME; NO APPARENT DISTRESS NOTED
--- NOTE | 2023-03-15 10:33 | NUR ---
PLACED ON CPAP TRIAL NOTED; TOLERATING WELL; GOOD CHEST RISE; SHEET METAL LAYOUT MECHANIC TO MONITOR
--- NOTE | 2023-03-15 11:26 | NUR ---
PATIENT PRESENTING WITH ASCENDING RESPIRATORY RATE TO 40-42 BPM; TOLERATED CPAP TRIAL LESS THAN 1 HOUR; PLACED BACK ON AC MODE TO REST PATIENT AT THIS TIME; JORDON/REGISTRY DRESSER TENDER NOTIFIED
[2023-03-15 11:50] LABS: APPEARANCE,URINE CLEAR (CLEAR); BILIRUBIN,URINE NEGATIVE (NEGATIVE); BLOOD, URINE 3+ (NEGATIVE); COLOR,URINE YELLOW (YELLOW); LEUKOCYTE ESTERASE ,URINE TRACE (NEGATIVE); NITRITE, URINE NEGATIVE (NEGATIVE); PH,URINE 7.5 (5.0-9.0); UGLUCOSE NEGATIVE (NEGATIVE)
[2023-03-15 11:56] LABS: RBC,URINE 20-50 /HPF (0-5)
[2023-03-15] MEDS: NON ADHERENT DRESSING TP SCH (12:56)
[2023-03-15] MEDS: FOAM DRESSING TP SCH (12:56)
[2023-03-15] MEDS: NITROGLYCERIN 2% 1 GM PKT TP SCH (13:29)
--- NOTE | 2023-03-15 13:55 | NUR ---
RESTING COMFORTABLY GOOD CHEST RISE ENDOTRACHEAL SUCTION FOR MODERATE THIN YELLOW SECRETIONS AIRWAY PATENT , SON AND FAMILY MEMBER AT BEDSIDE SPEAKING TO DESTINY/DRESS OPERATOR AT THIS TIME; CONVERSATIONS WITNESSED BY JORDON/REGISTRY UNIT CONTROL CLERK AND SAGAR/UNIT CONTROL CLERK
--- NOTE | 2023-03-15 14:09 | NUR ---
SPOKE TO AND EXPLAIN SKIN CONDITION AND COMORBIDITIES. DOES NOT WANT TO DISCUSS ANY ISSUE WITH WOUND CARE NURSE, ONLY WANT TO TALK TO DOCTOR. PRIMARY RN MISTY IS AT BEDSIDE AND WITNESS NOT WANT TO HEAR THE WOUND CARE NURSE AND CHARGE NURSE AZIZA KEITH IS NOTIFY DR. CASAS AT TIME OF CONVERSATION.
--- NOTE | 2023-03-15 14:14 | NUR ---
WOUND CARE NURSE AT BEDSIDE, ATTEMPTED TO EXPLAIN TO PT'S REGARDING PT'S SKIN CONDITION. REFUSED TO LISTEN AND INSISTED TO SPEAK ONLY TO THE DOCTORS. NOTIFIED DR CASAS. NOTED THAT HE HAS BEEN SPEAKING TO AT BEDSIDE
--- NOTE | 2023-03-15 14:50 | NUR ---
WOUND CARE RE-EVALUATION NOTE: SKIN ASSESSMENT DONE WITH PRIMARY RN MISTY. PT. HEAR FROM ME EXPLAIN OF SKIN CONDITIONS, TREATMENT PLAN AND COMORBIDITIES. PT. CAN'T TALK BUT ABLE TO BLINK HER EYES, NOD HER HEAD SHOWS MESSAGE RECEIVED. BLE SEEN BY DR. TOWNSEND. PENDING VASCULAR PROCEDURE. WILL CONTINUE CURRENT INTERVENTIONS. -LIPS AND ORAL MUCOSA MOIST -UPPER ARMS MULTIPLE ECCHYMOSIS/MULTIPLE PURPLE DISCOLORATION / ECCHYMOSIS FADING. -MOISTURE ASSOCIATED SKIN DAMAGE (MASD) IMPROVING TO B/L GROINS, PERINEUM -SEVERE MASD TO RIGHT BUTTOCK PARTIAL THICKNESS SKIN LOSS 3X3X0.1CM, WOUND BED 100% PINK TISSUE, MOIST NO ODOR, SANTO WOUND PEELING SKIN. -RIGHT HIP CLEAR FLUIDS INTACT BLISTERING PARTIALLY RESOLVED WITH OPEN BLISTERING SKIN 4X3X0.1CM, WOUND BED PINK ,MOIST, NO ODOR -LUMBAR AREA MULTIPLE DRY PEELING SCABS, UPPER LUMBER AREA SKIN TEAR 0.5X4X0.1CM. WOUND BED 100% PINK TISSUE, MOIST, NO ODOR, WOUND EDGE FLAT, SANTO-WOUND SKIN DRY SCABBING SKIN -DTI COCCYX 5X1CM, 100% MAROON, SANTO-WOUND SKIN NON-BLANCHABLE REDNESS -DTI LEFT BUTTOCK, MULTIPLE DTI WITH LARGEST 1.5X2.5CM WOUND BED IS 100% MAROON, SANTO-WOUND SKIN NON-BLANCHABLE REDNESS -LEFT BUTTOCK OPEN BLISTERING SKIN PARTIAL THICKNESS SKIN LOSS 5X3X0.1CM, WOUND BED 100% PINK TISSUE, MOIST NO ODOR, SANTO WOUND DENUDED SKIN MERGED TO COCCYX WOUND EDGE. FURTHER DAMAGE INDICATED -DTI RIGHT BUTTOCK X SHAPE RESOLVED -BLE MULTIPLE DRY SCABS, ISCHEMIA X 10 TOES. -LEFT DORSAL FOOT NO EDEMA, TODAY'S ASSESSMENT 6X4 CM 100% BLACK NECROTIC TISSUE, DRY -RIGHT DORSAL FOOT +1 EDEMA WITH PREVIOUS MULTIPLE BULLOUS RESOLVED, TODAY'S ASSESSMENT 4X3 CM 100% BLACK NECROTIC TISSUE, DRY
--- NOTE | 2023-03-15 15:16 | NUR ---
PER DR CASAS, HE WILL BE PUTTING IN ORDERS FOR CASE MANAGEMENT TO ARRANGE TRANSFER TO PATIENTS PREFERRED FACILITY PER FAMILY REQUEST
--- NOTE | 2023-03-15 16:23 | NUR ---
EXPANSION JOINT BUILDER TO ASSIST; PATIENT TRANSFER TO WOUND CARE BED; TOLERATED WELL WITHOUT COMPLICATIONS NOTED Addendum: 03/15/23 at 1752 by David Martin RT ACTUAL TIME [id number]
--- NOTE | 2023-03-15 16:44 | NUR ---
STABLE AWAKE AND ALERT REMAINS SEDATED ON PRECEDEX AT 0.1 mcg ENDOTRACHEAL SUCTION FOR LARGE THIN LYONS YELLOW SECRETIONS AIRWAY PATENT PLACED ON SIMV NOTED FOR WEANING JORDON/REGISTRY VAMP MARKER NOTIFIED VIDEOTAPE RECORDING ENGINEER TO MONITOR
--- NOTE | 2023-03-15 19:30 | NUR ---
RECEIVED PT FROM AZIZA JAY IN BED WITH HOB ELEVATED AT 15 DEGREE. PT SHOW NO S/S OF DISTRESS. NO SOB. PT EASILY AROUSE BY VOICE. PT ALERT AND ORIENTED TO PLACE AND NAME. PT FOLLOWS SIMPLE COMMANDS WITHOUT ANY DIFFICULTY. EYES ARE PERRL AND TRACKING WITH NO PROBLEMS. SKIN APPEARS TO BE WARM AND DRY WITH MULTIPLE WOUNDS THROUGHOUT BODY. LUNG SOUNDS COARSE TO AUSCULTATION ON ALL LOBES. PT IS ETT TO VENT. PRECEDEX DRIP IS RUNNING AT 0.1MCG/KG/HR HEART RATE SINUS RHYTHM BETWEEN NORMAL AND TACHYCARDIA. PT DENIES ANY PAIN AND DISCOMFORT.CONTINUE TO MONITOR AND NOTIFY IF THERE ARE CHANGES
[2023-03-16] VITALS (26 sets, daily range): BP systolic 102–154; BP diastolic 64–92
[2023-03-16] MEDS: Z-GUARD PASTE TP SCH ×2 (01:18→13:36)
[2023-03-16] MEDS: ALBUTEROL SULFATE/IPRATROPIU 3 ML SOL IH SCH ×4 (02:06→22:23)
[2023-03-16 05:19] LABS: BASOPHILS % (AUTO) 0.2 % (0.0-2.0); EOSINOPHILS % (AUTO) 0.2 % (0.0-4.0); HEMATOCRIT 27.7 % (36-48); LYMPHOCYTES # (AUTO) 0.7 K/uL (2.5-16.5); MEAN CORPUSCULAR HEMOGLOBIN 28 pg (27-31); MEAN CORPUSCULAR HGB CONC 33 g/dL (33-37); MONOCYTES # (AUTO) 0.4 K/uL (0.8-1.0); MONOCYTES % (AUTO) 3.2 % (1.7-9.3); NEUTROPHILS # (AUTO) 10.9 K/uL (1.8-7.7); NEUTROPHILS % (AUTO) 90.4 % (42.2-75.2); PLATELET COUNT (AUTO) 595 K/uL (140-450); RED BLOOD CELL COUNT(AUTO) 3.22 MIL/uL (4.20-5.40); RED CELL DISTRIBUTION WIDTH 19.2 % (11.6-13.7)
[2023-03-16 05:23] LABS: ANION GAP 23.2 (8-16); CARBON DIOXIDE 23.6 mmol/L (21-32); POTASSIUM 3.8 mmol/L (3.5-5.1)
[2023-03-16 06:03] LABS: CREATININE 4.7 mg/dL (0.6-1.3)
--- NOTE | 2023-03-16 07:16 | NUR ---
RECEIVED BEDSIDE REPORT FROM MIGHT GÓMEZ CURRY RN. PT IS AWAKE AND ALERT. ETT TO VENT, SIMV VC FIO2 24%, VT 425, RATE 20, PEEP 5. NG TUBE TO LT NARE, NEPHRO TUBE FEEDING INFUSING @ GOAL RATE 30 MLS/H, FWF [address] TO GRAVITY, URINE CLEAR AND YELLOW. SR ON MONITOR. RT IJ QUEENIE CATHETER IN PLACE. PICC TO YEHUDA, INFUSING PRECEDEX @ 0.1 MCG/KG/H, TKO NS @ 5MLS/H. CONTACT ISOLATION. GENERALIZED WEAKNESS, BEDREST. SAFETY PRECAUTION IN PLACE, WILL CONTINUE TO MONITOR.
[2023-03-16] MEDS: PIPERACILLIN/TAZOBACTAM 3.375 GM in DEXTROSE 5% 50 ML IV SCH (08:09)
--- NOTE | 2023-03-16 09:03 | NUR ---
DR CASAS ROUNDING AT BEDSIDE. UPDATED PT INFORMATION. ORDER TO RENEW THE MEDICATIONS.
--- NOTE | 2023-03-16 09:08 | NUR ---
BEDSIDE ULTRASOUND STARTED. PT TOLERATED WELL.
--- NOTE | 2023-03-16 10:22 | NUR ---
DR MIGUEL TAYLOR AT BEDSIDE. UPDATED PT INFORMATION
--- NOTE | 2023-03-16 10:41 | NUR ---
DR MCCARTY ROUNDARMANDO AT BEDSIDE. UPDATED PT INFORMATION.
--- NOTE | 2023-03-16 11:10 | NUR ---
PT EXTUBATED, ON ROOM AIR. HR 98, RR 36, O2 SAT 96%, BP 117/85. NO S/S OF ACUTE RESPIRATORY DISTRESS.
--- NOTE | 2023-03-16 11:20 | NUR ---
CALLED TO BEDSIDE BY DR MCCARTY. PERFORMED WEANING PROTOCOLS TO ENSURE PATIENT IS VIABLE FOR EXTUBATION. PATIENT WAS ABLE TO PERFORM A NIF -22, RSBI 71, VC 1164. PATIENT HAD A POSITIVE LEAK AND WAS ABLE TO BE EXTUBATED. PATIENT SATING AT 97% ON ROOM AIR. VENTILATOR ON STANDBY AT BEDSIDE. WILL CONTINUE TO MONITOR.
[2023-03-16] MEDS: FOAM DRESSING TP SCH (13:22)
[2023-03-16] MEDS: NITROGLYCERIN 2% 1 GM PKT TP SCH (13:24)
--- NOTE | 2023-03-16 13:30 | NUR ---
SEEN AND EXAMINED BY DR OLIVA. UPDATED PT INFORMATION
[2023-03-16] MEDS: NON ADHERENT DRESSING TP SCH (13:36)
--- NOTE | 2023-03-16 14:42 | NUR ---
03/16/23 RD FOLLOW UP COMPLETED PLEASE REFER TO NUTRITION ASSESSMENT UNDER CARE ACTIVITY FOR ESTIMATED NUTRITIONAL NEEDS. 1. RD RECOMMENDS TO CONTINUE ON NEPRO@30ML/HR WITH FWF 100 Q6H OR PER MD DUE TO KIDNEY ISSUES. THIS WILL PROVIDE THE PATIENT WITH 1296KCAL, 58GRAMS OF PROTEIN, MEETING AT LEAST 75% OF ESTIMATED NUTRITIONAL NEEDS. 2. RD RECOMMENDS CONTINUE WITH ELAYNE BID WHICH WILL PROVIDE ADDITIONAL 160 CALORIES AND 5 GRAMS OF ADDITIONAL PROTEIN FOR WOUNDS. 3. RD TO FOLLOW-UP 2-3 DAYS, HIGH RISK ANNA RUFF RD
--- NOTE | 2023-03-16 16:50 | NUR ---
ST CAME AND EVALUATE PT. RECOMMEND PUREE NECTAR LIQUID DIET. NOTIFIED SAILAJA MAK TO ORDER THE DIET.
[2023-03-16] MEDS ORDERED: VANCOMYCIN 750 MG in DEXTROSE 5% 250 ML IV SCH (17:00)
--- NOTE | 2023-03-16 18:33 | NUR ---
PT TOLERATED ORAL DIET, GOOD APPETITE. NGT REMOVED, INTACT.
--- NOTE | 2023-03-16 18:55 | NUR ---
CHANGED AND REPOSITIONED PT. LARGE AMOUNT OF BLOOD AND BLOOD CLOTS. PER PT, SHE IS ON PERIOD.
--- NOTE | 2023-03-16 19:12 | NUR ---
ENDORSED TO VASCULAR PHYSICIAN SINDY RN FOR CONTINUITY OF CARE. ALL QUESTIONS ANSWERED.
--- NOTE | 2023-03-16 20:00 | NUR ---
awake,,alert, with clear speech,disoriented when i ask pt. about her son name. temp-98.6 orally. heart rate-120. tylenol 650 mg po given with apple sauce taken well. cooling measure done. repositioned. rudy picc line patent with ns tko infusing well.left arm still weak. both lower extremities with necrotic toes to lt. foot, rt foot necrotic . close monitoring.
[2023-03-16] MEDS: ACETAMINOPHEN 325 MG TAB PO PRN (20:51)
[2023-03-17] VITALS (14 sets, daily range): BP systolic 127–144; BP diastolic 65–92
[2023-03-17] MEDS: Z-GUARD PASTE TP SCH (01:02)
[2023-03-17] MEDS: ALBUTEROL SULFATE/IPRATROPIU 3 ML SOL IH SCH ×4 (01:13→19:24)
--- NOTE | 2023-03-17 01:30 | NUR ---
awake,cooling measures done ice packs to axilla/groin hr -90 Dr. Tuttle did not call back. close monitoring.
[2023-03-17 05:27] LABS: BASOPHILS % (AUTO) 0.3 % (0.0-2.0); EOSINOPHILS # (AUTO) 0.1 K/uL (0-0.4); EOSINOPHILS % (AUTO) 0.5 % (0.0-4.0); HEMATOCRIT 23.7 % (36-48); HEMOGLOBIN 7.7 g/dL (12.0-16.0); LYMPHOCYTES # (AUTO) 0.9 K/uL (2.5-16.5); LYMPHOCYTES % (AUTO) 7.7 % (20.5-51.1); MEAN CORPUSCULAR HEMOGLOBIN 28 pg (27-31); MEAN CORPUSCULAR HGB CONC 33 g/dL (33-37); MEAN CORPUSCULAR VOLUME 86.8 fL (80-94); MONOCYTES # (AUTO) 0.6 K/uL (0.8-1.0); MONOCYTES % (AUTO) 4.6 % (1.7-9.3); NEUTROPHILS # (AUTO) 10.5 K/uL (1.8-7.7); NEUTROPHILS % (AUTO) 86.9 % (42.2-75.2); PLATELET COUNT (AUTO) 589 K/uL (140-450); RED BLOOD CELL COUNT(AUTO) 2.73 MIL/uL (4.20-5.40); RED CELL DISTRIBUTION WIDTH 18.9 % (11.6-13.7); WHITE BLOOD COUNT (AUTO) 12.1 K/uL (4.8-10.8)
[2023-03-17 05:38] LABS: ANION GAP 16.3 (8-16); CARBON DIOXIDE 28.9 mmol/L (21-32); CREATININE 3.1 mg/dL (0.6-1.3); POTASSIUM 4.2 mmol/L (3.5-5.1)
--- NOTE | 2023-03-17 06:00 | NUR ---
heart rate-96 decreased heart rate when cooling measures decreased the temp. to 98.2. afebrile . had a vaginal bleeding . pt. said its menstrual period. keep pt. clean/dry cont. to monitor pt.
--- NOTE | 2023-03-17 08:30 | NUR ---
AT BEDSIDE FEEDING
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
--- NOTE | 2023-03-17 14:40 | NUR ---
Endorse to [facility]
--- NOTE | 2023-03-17 14:50 | NUR ---
PT TRANSFERRED TO [facility] WITH BELONGINGS. FAMILY MADE AWARE.
--- NOTE | 2023-03-17 15:00 | NUR ---
RECEIVED PT FROM ICU. RECEIVED REPORT FROM JORGE RN. PLACED IN BED COMFORTABLY. ALERT AND ORIENTED X 4. RESP. EVEN AND UNLABORED. ON ROOM AIR. NO C/O PAIN OR DISCOMFORT. CALL LIGHT KEPT WITHIN REACH. REMAINS STABLE. PT WILL MONITOR CLOSELY.
--- NOTE | 2023-03-17 15:30 | NUR ---
INCONTINENT CARE RENDERED. NOTED 1 LARGE BOWEL MOVEMENT.
[2023-03-17 18:34] LABS: HEMOGLOBIN 7.4 g/dL (12.0-16.0)
--- NOTE | 2023-03-17 19:30 | NUR ---
BEDSIDE REPORT GIVEN TO NIGHT NURSE MAMADOU FOR CONTINUITY OF CARE. REMAINS STABLE.
--- NOTE | 2023-03-17 19:31 | NUR ---
RECEIVED REPORT FROM DAY NURSE. PATIENT AWAKE ALERT VERBALLY RESPONSIVE. ABLE TO MAKE NEEDS KNOWN. NO S/S OF DISTRESS. BREATHING REGULAR NON LABORED. NO COMPLAINTS OF PAIN. SON AT BEDSIDE. CALL LIGHT WITHIN REACH. SAFETY MEASURES ARE IN PLACE.
--- NOTE | 2023-03-17 22:03 | NUR ---
PATIENT LEFT AGAINST MEDICAL ADVISE ACCOMPANIED BY AND 2 SON IN STABLE CONDITION. REQUESTED NOT TO REMOVE THE HERNANDEZ CATHETER.
== END 2023-03-17 22:03 | disposition left against medical advice (07) | DRG 720 ==
LOC: MED 12:59 → MTU 18:54 → MIC 20:14 → MTU 03-17 14:56
PROVIDERS: ADMIT General Practice; ATTEND General Practice
PROC: 5A1955Z Respiratory Ventilation, Greater than 96 Consecutive Hours (ICD-10-PCS; principal; 2023-03-03)
PROC: 0BH17EZ Insertion of Endotracheal Airway into Trachea, Via Natural or Artificial Opening (ICD-10-PCS; 2023-03-03)
PROC: 05HM33Z Insertion of Infusion Device into Right Internal Jugular Vein, Percutaneous Approach (ICD-10-PCS; 2023-03-03)
PROC: B543ZZA Ultrasonography of Right Jugular Veins, Guidance (ICD-10-PCS; 2023-03-03)
PROC: 02HV33Z Insertion of Infusion Device into Superior Vena Cava, Percutaneous Approach (ICD-10-PCS; 2023-03-03)
PROC: 5A1D70Z Performance of Urinary Filtration, Intermittent, Less than 6 Hours Per Day (ICD-10-PCS; 2023-03-03)
PROC: B548ZZA Ultrasonography of Superior Vena Cava, Guidance (ICD-10-PCS; 2023-03-03)
PROC: 30233N1 Transfusion of Nonautologous Red Blood Cells into Peripheral Vein, Percutaneous Approach (ICD-10-PCS; 2023-03-04)
PROC: 5A1D70Z Performance of Urinary Filtration, Intermittent, Less than 6 Hours Per Day (ICD-10-PCS; 2023-03-04)
PROC: 30233M1 Transfusion of Nonautologous Plasma Cryoprecipitate into Peripheral Vein, Percutaneous Approach (ICD-10-PCS; 2023-03-05)
PROC: 30233R1 Transfusion of Nonautologous Platelets into Peripheral Vein, Percutaneous Approach (ICD-10-PCS; 2023-03-05)
PROC: 5A1D70Z Performance of Urinary Filtration, Intermittent, Less than 6 Hours Per Day (ICD-10-PCS; 2023-03-06)
PROC: 5A1D70Z Performance of Urinary Filtration, Intermittent, Less than 6 Hours Per Day (ICD-10-PCS; 2023-03-07)
PROC: 5A1D70Z Performance of Urinary Filtration, Intermittent, Less than 6 Hours Per Day (ICD-10-PCS; 2023-03-08)
PROC: 5A1D70Z Performance of Urinary Filtration, Intermittent, Less than 6 Hours Per Day (ICD-10-PCS; 2023-03-12)
PROC: 5A1D70Z Performance of Urinary Filtration, Intermittent, Less than 6 Hours Per Day (ICD-10-PCS; 2023-03-14)
PROC: 5A1D70Z Performance of Urinary Filtration, Intermittent, Less than 6 Hours Per Day (ICD-10-PCS; 2023-03-16)
PROC: 5A1D70Z Performance of Urinary Filtration, Intermittent, Less than 6 Hours Per Day (ICD-10-PCS; 2023-03-16)
PROC: 5A1D70Z Performance of Urinary Filtration, Intermittent, Less than 6 Hours Per Day (ICD-10-PCS; 2023-03-17)
DX: A40.0 Sepsis due to streptococcus, group A (principal); J96.01 Acute respiratory failure with hypoxia; D65 Disseminated intravascular coagulation [defibrination syndrome]; I63.9 Cerebral infarction, unspecified; J69.0 Pneumonitis due to inhalation of food and vomit; K72.00 Acute and subacute hepatic failure without coma; R65.21 Severe sepsis with septic shock; R57.0 Cardiogenic shock; G93.41 Metabolic encephalopathy; E11.649 Type 2 diabetes mellitus with hypoglycemia without coma; D63.1 Anemia in chronic kidney disease; I96 Gangrene, not elsewhere classified; D61.818 Other pancytopenia; E46 Unspecified protein-calorie malnutrition; E87.1 Hypo-osmolality and hyponatremia; E87.20 Acidosis, unspecified; N17.9 Acute kidney failure, unspecified; D75.838 Other thrombocytosis; Z20.822 Contact with and (suspected) exposure to COVID-19; E11.65 Type 2 diabetes mellitus with hyperglycemia; I12.9 Hypertensive chronic kidney disease with stage 1 through stage 4 chronic kidney disease, or unspecified chronic kidney disease; E11.22 Type 2 diabetes mellitus with diabetic chronic kidney disease; N18.9 Chronic kidney disease, unspecified; F19.10 Other psychoactive substance abuse, uncomplicated; Z68.29 Body mass index [BMI] 29.0-29.9, adult; F15.10 Other stimulant abuse, uncomplicated; S90.822A Blister (nonthermal), left foot, initial encounter; S90.821A Blister (nonthermal), right foot, initial encounter; E11.51 Type 2 diabetes mellitus with diabetic peripheral angiopathy without gangrene; L89.899 Pressure ulcer of other site, unspecified stage
CPT/HCPCS: 36415; 36430; 36600; 70450; 71045; 72131; 73130; 73620; 73630; 76705; 80048; 80053; 80202; 80305; 81001; 81003; 82550; 82553; 82803; 82948; 83036; 83605; 83735; 83880; 84100; 84478; 84484; 85018; 85025; 85379; 85384; 85610; 85730; 86140; 86592; 86702; 86704; 86706; 86708; 86709; 86803; 86886; 86900; 86901; 86920; 87040; 87070; 87081; 87086; 87186; 87205; 87340; 89220; 92526; 93005; 93880; 93925; 93970; 94003; 94640; 96365; 96375; 96376; 99291; G0480; G0482; J0282; J0610; J0696; J1644; J2060; J2250; J2270; J2370; J2405; J2543; J3010; J3370; J3372; J3480; J3490; J7030; J7060; P9016; P9017; P9035; P9046; Q0092